=== PATIENT | female | born 1930 | race Caucasian/White ===

== ENCOUNTER 2016-03-01 10:53 | Inpatient (IN) | payer MEDICARE, OTHER ==
[~2016-03-01] VITALS: Ht 162.6 cm; Wt 63.3 kg
[2016-03-01] VITALS (11 sets, daily range): BP systolic 85–104; BP diastolic 51–66
[~2016-03-01 10:53] MED LIST: ATEN50TA2 PO; CALC600T71 PO; FOLI400T PO; FURO20TA2 PO; GLUC1CAP9 PO; MAGN250T2 PO; POTA10CA PO; PRAD75CA3 PO; VITA100066 PO; VITA500T3 PO; VITA50TA43 PO
[2016-03-01 11:24] LABS: BASO # 0.2 K/mm3 (0.0-0.2); BASO % 0.7 % (0.0-1.0); EOS # 0.2 K/mm3 (0.0-0.50); EOS % 0.5 % (0.0-3.0); LARGE UNSTAINED CELL # 0.5 K/mm3 (0.0-0.4); LARGE UNSTAINED CELL % 1.7 % (0.0-4.0); LYMPH # 3.3 K/mm3 (1.5-4.5); LYMPH % 9.5 % (24.0-44.0); MEAN CORPUSCULAR HEMOGLOBIN 28.6 pg (27.0-33.0); MEAN CORPUSCULAR HGB CONC 30.9 g/dl (32.0-36.5); MEAN CORPUSCULAR VOLUME 92.7 fl (80.0-96.0); MONO % 3.4 % (0.0-5.0); NEUTROPHILS # 25.1 K/mm3 (1.8-7.7); NEUTROPHILS % 84.2 % (36.0-66.0); PLATELET COUNT, AUTOMATED 644 k/mm3 (150-450); RED CELL DISTRIBUTION WIDTH 17.3 % (11.5-14.5); WHITE BLOOD COUNT 29.8 K/mm3 (4.0-10.0)
[2016-03-01 11:36] LABS: ABG BASE EXCESS -0.9 (-2.0-2.0); ABG DEVICE NASAL CANN; ABG HCO3 22.7 MEQ/L (22.0-26.0); ABG PARTIAL PRESSURE CO2 34.4 mmHg (35.0-45.0); ABG PARTIAL PRESSURE O2 75.8 mmHg (75.0-100.0); ABG STANDARD HCO3 23.7 MEQ/L (22.0-26.0); ABG TOTAL CO2 23.7 MEQ/L (23.0-31.0); ABG pH (ARTERIAL) 7.437 UNITS (7.350-7.450)
[2016-03-01 11:52] LABS: CALCIUM LEVEL 9.9 MG/DL (8.8-10.2); CREATININE FOR GFR 1.89 MG/DL (0.55-1.02); GLOMERULAR FILTRATION RATE 26.8 (>32); POTASSIUM SERUM 4.9 MEQ/L (3.5-5.1)
--- NOTE | 2016-03-01 12:38 | REP ---
Semi upright AP portable chest, 03/01/2016 Indication: Shortness of breath Comparison: Portable chest 02/09/2015, CT chest 08/13/2013 Findings: The cardiac silhouette is significantly enlarged with right atrial and ventricular enlargement. There is aneurysmal dilatation within the thoracic aorta. New large posterior segment of the right upper lobe opacity with indistinct margins, measuring approximately 10 cm cranial-caudal by 7.4 cm transverse dimension may represent mass versus infiltrate. There is interstitial pulmonary edema Impression: 1. Significant/large cardiomegaly with right atrial enlargement. Right atrial and ventricular pacer leads are unchanged. 2. Interstitial pulmonary edema 3. Large posterior segment right upper lobe mass versus infiltrate. Recommend correlation with CT chest with IV contrast Signed by Gwen Loyd MD 03/01/2016 12:30 P
[2016-03-01] MEDS ORDERED: ONDANSETRON 4MG/2ML VIAL (J2405) IV PRN (12:45)
[2016-03-01] MEDS ORDERED: ACETAMINOPHEN TAB 650MG DOSE (2X325MG) PO PRN (12:45)
[2016-03-01] MEDS ORDERED: cefTRIAXone SOD 1 GM VIAL (J0696) As Ordered ONE (12:46)
[2016-03-01] MEDS ORDERED: AZITHROMYCIN INJ 500MG VIAL (J0456) As Ordered ONE (12:46)
[2016-03-01] MEDS ORDERED: TORS20TA2 PO (13:55)
[2016-03-01] MEDS ORDERED: PRAD75CA3 PO (13:55)
[2016-03-01] MEDS ORDERED: MIDO5TA PO (13:55)
[2016-03-01] MEDS ORDERED: LEVO50TA45 PO (13:55)
[2016-03-01] MEDS ORDERED: FUROSEMIDE 40 MG/4 ML VIAL (J1940) As Ordered ONE (14:20)
[2016-03-01] MEDS ORDERED: FUROSEMIDE 100 MG/10 ML VIAL (J1940) IV ONE (14:30)
[2016-03-01 14:56] LABS: ABG BASE EXCESS -9.2 (-2.0-2.0); ABG HCO3 19.8 MEQ/L (22.0-26.0); ABG PARTIAL PRESSURE CO2 56.3 mmHg (35.0-45.0); ABG PARTIAL PRESSURE O2 85.9 mmHg (75.0-100.0); ABG STANDARD HCO3 17.1 MEQ/L (22.0-26.0); ABG TOTAL CO2 21.5 MEQ/L (23.0-31.0)
[2016-03-01 14:58] LABS: ABG pH (ARTERIAL) 7.164 UNITS (7.350-7.450)
--- NOTE | 2016-03-01 16:10 | REP ---
CHEST, ONE VIEW: HISTORY: Status-post central line placement. COMPARISON: 03/01/2016 The technique utilized in obtaining the radiograph has magnified the cardiac silhouette and accentuated the interstitial markings. A right sided internal jugular central venous catheter is now present. The tip of which is in the region of the superior vena cava. Patchy opacities are again seen throughout the right lung status quo. There are no additional abnormal opacities. Cardiomediastinal silhouette is unchanged. Dual chamber bipolar pace maker status quo. IMPRESSION: Central line placement as described above with other findings. Signed by Marcio Watt DO 03/01/2016 04:40 P
--- NOTE | 2016-03-01 16:30 | RO ---
DATE OF PROCEDURE: 03/01/2016 PREPROCEDURE DIAGNOSIS: Shock. POSTPROCEDURE DIAGNOSIS: Shock and congestive heart failure. PROCEDURE: Triple lumen internal jugular ( IJ) central line. SURGEON: Dr. Camryn Parada SEMI AUTOMATIC SEWING MACHINE OPERATOR: Dr. Steven Samuel ANESTHESIA: 1% local lidocaine. SEDATION: None. VENTILATION: Patient on bilevel positive airway pressure (BiPAP). ESTIMATED BLOOD LOSS: 15 mL. DESCRIPTION OF PROCEDURE: The patient was placed in 15 degree head up position due to dyspnea and congestive heart failure. Initially attempted on left IJ. Patient was cleaned with Chloraprep and covered in a sterile fashion. Ultrasound guidance was used. 1% lidocaine was injected with ultrasound guidance. Subsequently, the needle was inserted, flash of blood was obtained and subsequently attempt was made to thread the wire through the needle but feeling resistance, subsequent attempt was unsuccessful. Subsequently, procedure on the left IJ was aborted. The patient was repositioned, prepped with Chloraprep and covered again for right IJ triple lumen central line. Subsequently, lidocaine 1% was injected with ultrasound guidance. Needle was inserted with ultrasound guidance. Flash of blood of blood was obtained. Subsequently, wire was inserted. Ultrasound was used to confirm wire position. Subsequently, site was dilated and triple lumen central line was inserted over guidewire. Wire was removed. All three ports of central line was flushed and triple lumen central line was secured with stitches and clamps. Dressing was placed. The patient tolerated the procedure with no complications. X-ray was obtained to confirm line position.
--- NOTE | 2016-03-01 17:10 | HPE ---
DATE OF ADMISSION: 03/01/2016 PRIMARY CARE PROVIDER: Dr. Jackson CONTACT CENTER PROFESSIONAL: Dr. Pizarro RV SERVICE TECHNICIAN: Dr. Jarvis CODE STATUS: DO NOT RESUSCITATE, DO NOT INTUBATE. CHIEF COMPLAINT: Pneumonia, non ST elevation myocardial infarction. HISTORY OF PRESENT ILLNESS: Ms. Shrestha is an 85-year-old female with multiple past medical history who presented to the emergency room due to experiencing coughing exacerbation with sputum production, as well as fever, weakness. The patient expressed that her symptoms started around Friday evening when she had one episode of exploding diarrhea; however, the patient denies any abnormal color in her stool. She was able to ambulate however since Friday she became more fatigued. She is using oxygen at night, 2 liters, and her oxygen usage has not been increased. The patient has been having chronic palpitations due to having atrial fibrillation; however, the patient denies noticing any chest pain, increase in palpitations or chest discomfort. The patient expressed that she noticed that her cough has increased for the past two days and yesterday she noticed that her cough became productive with yellowish/green sputum. The patient also had an episode of hemoptysis yesterday which she believe that it is related to coughing too much. She also noticed that she has being temperature about 99.9 to 100.1 every evening since Friday. The patient did not have any sick contacts. The patient lives with her and has a neighbor who is also a caregiver and comes and visits her weekly. The patient expressed that she also developed shortness of breath. PAST MEDICAL HISTORY: 1. Pulmonary hypertension with right sided heart failure. 2. Cor pulmonale. 3. Congested liver and varicosities. 4. Sick sinus syndrome, pacemaker insertion. 5. Atrial fibrillation. 6. Hypercholesterolemia. 7. Hypertension. 8. Gastroesophageal reflux disease (GERD). 9. Osteoarthritis. 10. Varicosities. 11. Severe pulmonary hypertension. PAST SURGICAL HISTORY: Pacemaker insertion. ALLERGIES: AMIODARONE BARBITURATES DARVON CODEINE NIACIN LASIX ORANGE DYE AND SURGICAL SCRUB HOME MEDICATIONS: - Atenolol 50 mg twice a day by mouth - calcium/vitamin D one tablet by mouth daily - vitamin D 1000 units by mouth daily - vitamin B12 500 mcg by mouth daily - Pradaxa 75 mg by mouth twice a day - Levoxyl 50 mcg by mouth daily - magnesium 250 mg by mouth twice a day - midodrine HCL 5 mg by mouth twice a day - prazosin HCL 50 mg by mouth daily - torsemide 20 mg by mouth daily SOCIAL HISTORY: The patient lives with her at home. The patient has a caregiver, the patient's neighbor is also providing care for who lives next door and the patient contacts her anytime that she needs help. The patient is a former smoker; however, the patient quit smoking several years ago. The patient does not drink alcoholic beverages. The patient denies illicit drug use. The patient has not traveled outside the [place]. The patient does not have any pets at home. FAMILY HISTORY: The patient has one son and two daughters who are healthy. The patient had one brother pass away due to lung cancer secondary to smoking. The patient's farther due to having had hypertension. The patient's mother due to cancer secondary to mesothelioma. REVIEW OF SYSTEMS: The patient experienced fever; however, the patient denied any chills or night sweats. The patient denies weight loss or weight gain. HEENT: The patient denies acute vision or hearing changes. The patient has a problem with chewing food; however, the patient expressed that she has lost her appetite since Friday. NECK: The patient has no decreased range of motion of her neck. HEART: The patient expressed that she has been experiencing palpitations for a long time secondary to atrial fibrillation; however, the patient denies any chest pain or any increasing palpitations or having racing or skipping heartbeat more than usual. LUNGS: The patient expressed that she has been experiencing more cough with sputum production, yellow/clear. Also, patient experiencing shortness of breath. ABDOMEN: The patient had one episode of diarrhea; however, the patient denies melena or hematochezia. The patient had one episode of emesis yesterday possibly secondary to coughing and being on Pradaxa. NEUROLOGIC: The patient denies a history of TIA, CVA, or seizure type activity. PHYSICAL EXAMINATION: VITAL SIGNS: Temperature 115/79, pulse 125, respiratory rate 34, temperature 96 , pulse oximetry 91% on 3 liters nasal cannula. Weight 59.87 kg. Height 162.36 cm. Body Mass Index (BMI) 24.87. GENERAL APPEARANCE: The patient was lying in bed in no acute distress. The patient was awake, alert, and oriented to time, place and person. HEENT: Normocephalic, atraumatic. Pupils are equal. Oral mucosa is moist. NECK: Soft, supple. The patient has jugular venous distention (JVD). LUNGS: The patient has inhale and exhale wheezing. The patient also has crackles at the base of the lung. ABDOMEN: Positive bowel sounds in all quadrants. Soft, nontender. EXTREMITIES: Lower extremity edema. +2 pulses in both lower extremities. Also , the patient has varicosities bilaterally in her lower extremities. LABORATORY DATA: White blood cells 29.8, pulse 4.41, hemoglobin 12.6, hematocrit 40.8, MCV 92.7, MCH 28.7, MCHC 30.9, RDW 17.3, platelet count 644. Neutrophil percentage 84.2, lymphocyte percentage 9.2, monocyte percentage 33.4, eosinophil percentage 0.5, basophil percentage 0.7, leukocyte percentage 1.7, bicarbonate 23.7. ABG shows pH 7.437, ABG PCO2 34.4, ABG PO2 75.8, ABG HCL3 22.7, ABG total CO2 23.7, ABG O2 saturation 95.9, ABG excess -0.9. Sodium 134, potassium 4.9, chloride 98, carbon dioxide 26, anion gap 10, BUN 85, creatinine 1.89, GFR 26.8, fasting glucose 101, lactic acid 2.2, calcium 9.9, total CK 34, CK-MB 1.8, CK-MB relative index 5.92, troponin I 1.60, BNP 1550. Blood culture is pending at this time. Chest x-ray shows significant large cardiomegaly with right atrial enlargement, right atrial and ventricular pacer, unchanged interstitial pulmonary edema, large posterior segment right upper lobe mass versus infiltrate. ASSESSMENT AND PLAN: 1. Non ST elevation myocardial infarction. At this time, the patient denies having chest pain. The patient's cardiac marker shows increase of troponin I. We will repeat the cardiac markers again for two more sets and admit her to the progressive care unit (PCU). The patient also has acute on chronic kidney disease, which could also contribute to elevation of the troponin I. At this time, the patient is on Pradaxa and beta don (atenolol 50 mg by mouth twice a day). We have ordered echocardiogram and consulted cardiology, Dr. Araujo. Appreciate Dr. Araujo recommendations. 2. Pneumonia. Chest x-ray finding shows a possibility of pneumonia. Therefore , we have started the patient on ceftriaxone and azithromycin. Also, we have ordered a sputum culture and Gram stain, as well as influenza A and B, strep pneumonia and Legionella. Result is pending at this time. Also, we will continue the patient on oxygen nasal cannula with an order for Acapella and incentive spirometry. 3. Sepsis. This is possibly secondary to pneumonia. However, we have ordered blood cultures and due to the possibility of urinary tract infection (UTI), I have ordered a UA and urine culture, result is pending at this time. At this time, we will continue the patient on azithromycin and ceftriaxone. 4. Right sided heart failure. The patient has pulmonary hypertension with right sided heart failure, cor pulmonale. The patient's BNP has increased. Therefore , we gave one dose of Lasix 80 mg one time. We will continue the patient on the home dose of torsemide 20 mg by mouth daily however she might required aggressive diuresis. 5. Hypothyroidism. We will continue the patient on Synthroid 0.05 mg by mouth daily. 6. Sick sinus syndrome. This is a chronic issue. The patient is status post pacemaker. We have consulted Dr. Araujo. 7. Atrial fibrillation. At this time, the patient is on Pradaxa. Also, the patient is on atenolol however her heart rate is not controlled. This is possibly secondary to infection versus NE versus hypervolemia. We will continue to monitor the patient. The patient will be monitored on the progressive care unit (PCU). 8. Essential hypertension: Patient reported recent hypotension for which she was placed on midodrine by her PCP. 9. Chronic diastolic congestive heart failure: NYHA functional class III exertional dyspnea patient appeared to be decompensated on examination her BNP has increased. Patient received 1 dose of Lasix at the ER. At this time we'll continue patient on the home dosage of torsemide however patient might require to have aggressive uses. 10. Hypercholesterolemia. This is a chronic issue. 11. Gastroesophageal reflux disease (GERD). The patient is stable at this time. 12. Varicosities. This is a chronic issue. At this time, the patient is stable. 13. Osteoarthritis. The patient is asymptomatic. We will continue to monitor the patient for any abnormal symptoms. 14. Deep vein thrombosis (DVT) prophylaxis. The patient is on Pradaxa. 15. Constipation. The patient is on bowel regimen. 16. Lower extremity neuropathy. We will continue the patient on vitamin B12. At this time, the patient is stable. 17. Vitamin D deficiency. We will continue the patient on vitamin D 1000 units by mouth daily. My preceptor for this patient encounter was Dr. Buckner. The preceptor was physically present in the building during the encounter and was fully available. As needed, all aspects of the patient interview, examination, medical decision making process, and medical care plan development were reviewed and approved by the preceptor. The preceptor is aware and concurs with the plan as stated in the body of this note and will attest to such by his/her cosignature. Attending Note: I have independently examined this patient and all aspects of the exam and treatment decisions have been discussed with the resident. A member of the hospitalist staff will continue to follow this patient through discharge. ERIC
--- NOTE | 2016-03-01 17:34 | EDDOCDS ---
Physician Documentation [facility] Name: Mundo Shrestha Age: 85 yrs Sex: Female : 1930 Arrival Date: 03/01/2016 Time: 10:53 Bed 4 Private MDThomas Jackson Disposition: 03/01/16 12:54 Hospitalization ordered by Melvin Buckner for Inpatient Admission. Preliminary diagnosis are Pneumonia, unspecified organism, Acute pulmonary edema, Non-ST elevation (NSTEMI) myocardial infarction. - Bed requested for M ICU. - Status is Inpatient Admission. rs3 - Condition is Stable. - Problem is new. - Symptoms are unchanged. Historical: - Allergies: Amiodarone; BARBITURATES; Darvon; Codeine Sulfate; Latex; Niacin; orange dye; surgical scrub; - Home Meds: 1. Vitamin B-6 50 mg Oral cap 200 mg daily (Last dose: 02/29/2016) 2. Vitamin B-12 500 mcg Oral lozg daily (Last dose: 02/29/2016) 3. magnesium oxide 250 mg Oral tab daily (Last dose: 02/29/2016) 4. vit d 1000 daily 5. torsemide 20 mg oral tab 1 tab once daily (Last dose: 02/29/2016 08:00) 6. midodrine 5 mg oral tab bid (Last dose: 02/29/2016 20:00) 7. levothyroxine 50 mcg Oral tab 1 tab once daily (Last dose: 02/29/2016) 8. Pradaxa 75 mg oral cap bid (Last dose: 02/29/2016) 9. atenolol 50 mg Oral tab 2 times per day (Last dose: 02/29/2016) 10. potassium chloride 10 mEq Oral cpER daily when taking the lasix (Last dose: 02/29/2016) 11. calcium carbonate with vit D 630/400 mg Oral daily (Last dose: 02/29/2016) 12. O2 3L nightly (Last dose: 03/01/2016) - PMHx: Atrial Fib; GERD; Hypercholesterolemia; Hypertension; Osteoarthritis; Pulmonary Hypertension; sick sinus syndrome; Varicose Veins; pacer; - PSHx: pacer placement; - Social history: Smoking status: Patient states former smoker of tobacco. No barriers to communication noted, Speaks appropriately for age. - Family history: Not pertinent. - : The pt / caregiver states he / she is on anticoagulants: Pradaxa (Dabigatran) Home medication list is obtained from a discharge med list. - Exposure Risk Screening:: None identified. Vital Signs: 03/01 11:04 BP 115 / 79 RA Sitting (auto/reg); Pulse 125; Resp 34; Temp 96.0(O); Pulse Ox 91% on 3 jrd lpm NC; Weight 59.87 kg / 131.99 lbs (R); Height 5 ft. 4 in. (162.56 cm) (R); Pain 0/10; 11:05 Weight 61.69 kg / 136 lbs; Height 62 in. (157.48 cm); ttb 11:34 BP 117 / 77 (auto/); rs3 11:35 Pulse 120 MON; Pulse Ox 94% ; rs3 11:43 Pulse 122 MON; Pulse Ox 94% ; rs3 11:45 BP 122 / 76 (auto/); rs3 11:59 BP 111 / 66 (auto/); rs3 12:00 Pulse 118 MON; Pulse Ox 96% ; rs3 12:14 BP 101 / 59 (auto/); rs3 12:15 Pulse 124 MON; Pulse Ox 96% ; rs3 12:29 BP 104 / 55 (auto/); rs3 12:32 Pulse 122 MON; Pulse Ox 96% ; rs3 12:44 BP 98 / 65 (auto/); rs3 12:45 Pulse 128 MON; Pulse Ox 94% ; rs3 12:59 BP 106 / 67 (auto/); rs3 13:01 Pulse 124 MON; Pulse Ox 94% ; rs3 13:14 BP 132 / 80 (auto/); rs3 13:15 Pulse 124 MON; Pulse Ox 94% ; rs3 13:29 BP 143 / 78 (auto/); rs3 13:30 Pulse 128 MON; Pulse Ox 94% ; rs3 13:44 BP 127 / 65 (auto/); rs3 13:45 Pulse 120 MON; Pulse Ox 92% ; rs3 14:10 BP 111 / 63 (auto/); rs3 14:11 Pulse 124 MON; Pulse Ox 85% ; rs3 14:14 BP 95 / 72 (auto/); rs3 14:15 Pulse 124 MON; Pulse Ox 84% ; rs3 14:29 BP 107 / 79 (auto/); rs3 14:30 Pulse 120 MON; Pulse Ox 84% ; rs3 14:44 BP 103 / 73 (auto/); rs3 14:44 Pulse 128 MON; Pulse Ox 88% ; rs3 14:59 BP 103 / 77 (auto/); rs3 14:59 Pulse 132 MON; Pulse Ox 90% ; rs3 15:14 BP 99 / 66 (auto/); rs3 15:15 Pulse 136 MON; Pulse Ox 94% ; rs3 15:29 BP 91 / 59 (auto/); rs3 15:31 Pulse 136 MON; Pulse Ox 93% ; rs3 15:45 BP 102 / 59 (auto/); rs3 15:49 Pulse 132 MON; Pulse Ox 95% ; rs3 15:59 BP 98 / 57 (auto/); rs3 16:00 Pulse 130 MON; Pulse Ox 95% ; rs3 16:14 BP 88 / 54 (auto/); rs3 16:15 Pulse 116 MON; Pulse Ox 96% ; rs3 16:29 BP 90 / 55 (auto/); rs3 16:30 Pulse 120 MON; Pulse Ox 97% ; rs3 16:44 BP 95 / 58 (auto/); rs3 16:45 Pulse 128 MON; Pulse Ox 98% ; rs3 16:59 BP 91 / 63 (auto/); rs3 17:00 Pulse 126 MON; Pulse Ox 95% ; rs3 17:11 Pulse 128 MON; Resp 28; Pulse Ox 94% ; rs3 17:23 Temp 98.5(TE); rn1 17:26 BP 91 / 63; Pulse 124 MON; Resp 28; Temp 98.5(TE); Pulse Ox 93% on BiPAP; Pain 0/10; rs3 11:05 Body Mass Index 24.87 (61.69 kg, 157.48 cm) ttb MDM: 11:05 Engineer Steam/Pulse Ox/q 30 min VS ordered. br1 11:05 IV Saline Lock ordered. br1 11:05 Rhythm Strip to chart ordered. br1 11:05 Undress patient appropriately for examination ordered. br1 11:06 Basic Metabolic Profile Ordered. EDMS 11:06 CBC with Diff Ordered. EDMS 11:06 Cardiac Injury Profile Ordered. EDMS 11:06 Troponin Ordered. EDMS 11:06 ECG WITH READING ER PHYS+CARDIAG ordered. EDMS 11:07 BNP Ordered. EDMS 11:08 Chest, 2 View (pa\E\lat) Ordered. EDMS 11:19 -Blood Culture (Adults Only), peripheral from different site, or from device/port/PICC br1 etc. if present ordered. 11:19 Call Respiratory ordered. br1 11:20 Oxygen at 4L/Min NC or Home dosage ordered. br1 11:20 Lactic Acid (Back tube on ice) Ordered. EDMS 11:20 -Arterial Blood Gas Ordered. EDMS 11:20 -Blood Culture Ordered. EDMS 11:21 Call Respiratory complete. lbd 11:21 -Blood Culture (Adults Only), peripheral from different site, or from device/port/PICC lbd etc. if present complete. 11:23 BLOOD CULTURES Ordered. EDMS 12:21 cefTRIAXone 1 grams IVPB once over 30 mins; dilute in 50mL of NS or D5W ordered. br1 12:21 azithromycin 500 mg IVPB once over 1 hrs; dilute in 250mL of D5W or NS ordered. br1 12:33 Financial registration complete. pm4 12:44 LACTIC ACID LEVEL, LACTATE Ordered. EDMS 12:46 PHYSICAL THERAPY EVAL & TREAT ordered. EDMS 12:46 Basic Metabolic Profile Reviewed. br1 12:46 CBC with Diff Reviewed. br1 12:46 Cardiac Injury Profile Reviewed. br1 12:46 Troponin Reviewed. br1 12:46 BNP Reviewed. br1 12:46 Lactic Acid (Back tube on ice) Reviewed. br1 12:46 -Arterial Blood Gas Reviewed. br1 12:46 Admission / Observation Status ordered. EDMS 12:46 2 GRAM SODIUM DIET ordered. EDMS 12:53 [facility] [place] Agreement was scanned into [employer] and attached to record. pm4 13:06 CARDIAC MARKER PANEL Ordered. EDMS 13:06 SPUTUM CULTURE AND GRAM STAIN Ordered. EDMS 13:11 NS 0.9% 500 ml IV at bolus once ordered. br1 13:48 LEGIONELLA ANTIGEN URINE Ordered. EDMS 13:48 URINE STREP PNEUMONIAE ANTIGEN Ordered. EDMS 13:48 INFLUENZA A&B RAPID ANTIGEN Ordered. EDMS 13:55 URINALYSIS Ordered. EDMS 13:55 URINE CULTURE Ordered. EDMS 14:17 ED course: Seen by Dr. Buckner in ED, will admit patient, requested 500 cc normal br1 saline bolus x 1. 14:19 Furosemide 80 mg IVP once ordered. rs3 14:19 Louis ordered. rs3 14:20 ECHOCARD,DOPPLER/COLOR FLOW ordered. EDMS 14:33 ARTERIAL BLOOD GAS Ordered. EDMS 14:34 CPAP INPATIENT ordered. EDMS 15:21 Admission / Observation Status ordered. EDMS 15:33 Chest, 1 view Ordered. EDMS 15:37 Written Provider Order was scanned into [email or web address] and attached to record. lbd 15:56 ARTERIAL BLOOD GAS Ordered. EDMS 16:42 LACTIC ACID LEVEL, LACTATE Ordered. EDMS Administered Medications: 13:00 Drug: cefTRIAXone 1 grams Route: IVPB; Infused Over: 30 mins; Site: left antecubital; rs3 13:38 Follow up: IV Status: Completed infusion rs3 13:22 Drug: NS 0.9% 500 ml [sodium chloride 0.9 % injection solution] Route: IV; Rate: bolus; pml Site: left antecubital; 13:38 Drug: azithromycin 500 mg [azithromycin 500 mg intravenous solution] Route: IVPB; rs3 Infused Over: 1 hrs; Site: left antecubital; 15:58 Follow up: IV Status: Completed infusion rs3 14:20 Drug: Furosemide 80 mg [furosemide 10 mg/mL injection solution (8 mL)] Route: IVP; rs3 Site: left antecubital; Signatures: Dispatcher [employer] EDMS Kelle Bell, Flatbed Press Operator Unit lbd Charly Cerda RN Erich Elias MD MD br1 Dorothy Durham RN RN rs3 Agnieszka Mora RN RN ttb Sarkis Izaguirre RN Saul Saldivar sa, Reg Reg pm4 Liudmila Nunez RN pml The chart was reviewed and I authenticate all verbal orders and agree with the evaluation and treatment provided.Attachments: 12:53 [facility] Payment Agreement pm4 15:37 Written Provider Order lbd MTDD
--- NOTE | 2016-03-01 17:34 | EDDOCDS ---
Nurse's Notes [facility] Name: Mundo Shrestha Age: 85 yrs Sex: Female : 1930 Arrival Date: 03/01/2016 Time: 10:53 Bed 4 Private MD: Manuel Diagnosis: Pneumonia, unspecified organism;Acute pulmonary edema;Non-ST elevation (NSTEMI) myocardial infarction Presentation: 03/01 10:59 Presenting complaint: EMS states: increasing SOB since Friday. Today worsening -- pt ttb refused NRB and nitro in ambulance. 6L O2 applied in route. 12 lead shows Afib per EMS. No pain. Adult Sepsis Screening: The patient does not have new or worsening altered mentation. Patient has a respiratory rate of greater than or equal to 22 (1 point). Suicide/Homicide risk assessment- the patient denies having any suicidal and/or homicidal ideations and does not present with any other emotional, behavioral or mental health complaints. Status: Patient is not a food service clerk or dependent. Transition of care: patient was not received from another setting of care. 10:59 Method Of Arrival: Ambulance ttb 10:59 Acuity: CHERRIE Level 2 ttb 11:19 Adult Sepsis Screening: Patient has a qSOFA score of 1- Negative Sepsis Screen. ttb Triage Assessment: 11:19 Respiratory: Onset: The symptoms/episode began/occurred friday, Airway is patent ttb Respiratory effort is even, shallow, Respiratory pattern is regular, symmetrical, tachypnea Breath sounds with rhonchi inspiratory expiratory bilaterally. Reports shortness of breath at rest on exertion the patient has severe shortness of breath Denies pain with respiration, pain with cough. Derm: Skin is normal, circumoral discoloration and dusky fingers, cool to touch, LE's with broken blood vessels/veins noted. 1+ edema noted. Historical: - Allergies: Amiodarone; BARBITURATES; Darvon; Codeine Sulfate; Latex; Niacin; orange dye; surgical scrub; - Home Meds: 1. Vitamin B-6 50 mg Oral cap 200 mg daily (Last dose: 02/29/2016) 2. Vitamin B-12 500 mcg Oral lozg daily (Last dose: 02/29/2016) 3. magnesium oxide 250 mg Oral tab daily (Last dose: 02/29/2016) 4. vit d 1000 daily 5. torsemide 20 mg oral tab 1 tab once daily (Last dose: 02/29/2016 08:00) 6. midodrine 5 mg oral tab bid (Last dose: 02/29/2016 20:00) 7. levothyroxine 50 mcg Oral tab 1 tab once daily (Last dose: 02/29/2016) 8. Pradaxa 75 mg oral cap bid (Last dose: 02/29/2016) 9. atenolol 50 mg Oral tab 2 times per day (Last dose: 02/29/2016) 10. potassium chloride 10 mEq Oral cpER daily when taking the lasix (Last dose: 02/29/2016) 11. calcium carbonate with vit D 630/400 mg Oral daily (Last dose: 02/29/2016) 12. O2 3L nightly (Last dose: 03/01/2016) - PMHx: Atrial Fib; GERD; Hypercholesterolemia; Hypertension; Osteoarthritis; Pulmonary Hypertension; sick sinus syndrome; Varicose Veins; pacer; - PSHx: pacer placement; - Social history: Smoking status: Patient states former smoker of tobacco. No barriers to communication noted, Speaks appropriately for age. - Family history: Not pertinent. - : The pt / caregiver states he / she is on anticoagulants: Pradaxa (Dabigatran) Home medication list is obtained from a discharge med list. - Exposure Risk Screening:: None identified. Screenin:15 Screening information is obtained from the patient. Fall risk: At risk due to age, rs3 apparent cognitive impairment, gait disturbance, immobility. Assistance ADL's: Requires assistance with housework, assistance is provided by Home Health Aides. Abuse/DV Screen: The patient / caregiver reports he/she is: not in a situation that causes fear, pain or injury. Nutritional screening: No deficits noted. Advance Directives: Currently, there is a health care proxy, Chapin Shrestha (). There is an active DNR order but there is no copy available at this time. home support is adequate. Assessment: 11:16 Adult Sepsis Screening: The patient does not have new or worsening altered mentation. ttb Patient has a respiratory rate of greater than or equal to 22 (1 point). Systolic blood pressure is greater than 100. Patient has a qSOFA score of 1- Negative Sepsis Screen. General: Appears well nourished, well groomed, Behavior is appropriate for age, cooperative, pleasant. Pain: Denies pain. Neurological: Level of Consciousness is awake, alert, Speech is normal, Facial symmetry appears normal. Cardiovascular: Rhythm is atrial fibrillation Chest pain is denied. Respiratory: Airway is patent Respiratory effort is even, shallow, Respiratory pattern is regular, symmetrical, tachypnea Breath sounds are coarse Breath sounds with rhonchi crackles bilat Reports shortness of breath at rest on exertion since the patient has severe shortness of breath Denies pain with respiration. GI: Abdomen is noted to have ascites, Bowel sounds present X 4 quads. Denies nausea, vomiting, pain. Derm: Skin is normal. Injury Description: No known injury. 11:20 General: report given to next RNMarianne to continue care. Pt visiting with MD at this ttb time. . 12:17 General: Appears distressed. Pain: Denies pain. Neurological: Level of Consciousness is rs3 awake, alert. Respiratory: Airway is patent Respiratory effort is even, labored, Respiratory pattern is regular, symmetrical, Breath sounds are coarse bilaterally. Breath sounds with rhonchi bilaterally. Reports shortness of breath at rest cough that is productive, bloody sputum. Derm: Skin is dusky, finger tips. 13:53 General: Appears in no apparent distress, denies of acute distress at rest. SOB with rs3 activity, & speaking. denies of chest pain. ordered antibiotic Azithromycin infusing. tolerating well. family at bedside. admitting provider with patient. . 14:30 General: Appears distressed, patient tachypneic, distressed. lung sounds coarse rs3 crackles throughout lung emreson. oxygen sat 84% on 5 L/NC. admitting provider made aware. ordered med Lasix 80 mg IVP given. indwelling Louis 16fr inserted. drains dark yellow urine. respiratory therapist called in. adjusting mode of oxygen delivery . 15:30 General: Appears in no apparent distress, Had triple lumen insertion procedure done by rs3 Dr. Parada. patient tolerated well. Stat ABG drawn. patient on BIpap. tolerating well. titrated her to oxygen 98% . 16:40 General: Appears in no apparent distress, breathes easy. on BiPAP. maintaining oxygen rs3 level high 90s. Respiration 28/mt. lung sounds clear anteriorly. fine crackles at bibasilar. resting comfortable. . Vital Signs: 11:04 BP 115 / 79 RA Sitting (auto/reg); Pulse 125; Resp 34; Temp 96.0(O); Pulse Ox 91% on 3 jrd lpm NC; Weight 59.87 kg (R); Height 5 ft. 4 in. (162.56 cm) (R); Pain 0/10; 11:05 Weight 61.69 kg; Height 62 in. (157.48 cm); ttb 11:34 BP 117 / 77 (auto/); rs3 11:35 Pulse 120 MON; Pulse Ox 94% ; rs3 11:43 Pulse 122 MON; Pulse Ox 94% ; rs3 11:45 BP 122 / 76 (auto/); rs3 11:59 BP 111 / 66 (auto/); rs3 12:00 Pulse 118 MON; Pulse Ox 96% ; rs3 12:14 BP 101 / 59 (auto/); rs3 12:15 Pulse 124 MON; Pulse Ox 96% ; rs3 12:29 BP 104 / 55 (auto/); rs3 12:32 Pulse 122 MON; Pulse Ox 96% ; rs3 12:44 BP 98 / 65 (auto/); rs3 12:45 Pulse 128 MON; Pulse Ox 94% ; rs3 12:59 BP 106 / 67 (auto/); rs3 13:01 Pulse 124 MON; Pulse Ox 94% ; rs3 13:14 BP 132 / 80 (auto/); rs3 13:15 Pulse 124 MON; Pulse Ox 94% ; rs3 13:29 BP 143 / 78 (auto/); rs3 13:30 Pulse 128 MON; Pulse Ox 94% ; rs3 13:44 BP 127 / 65 (auto/); rs3 13:45 Pulse 120 MON; Pulse Ox 92% ; rs3 14:10 BP 111 / 63 (auto/); rs3 14:11 Pulse 124 MON; Pulse Ox 85% ; rs3 14:14 BP 95 / 72 (auto/); rs3 14:15 Pulse 124 MON; Pulse Ox 84% ; rs3 14:29 BP 107 / 79 (auto/); rs3 14:30 Pulse 120 MON; Pulse Ox 84% ; rs3 14:44 BP 103 / 73 (auto/); rs3 14:44 Pulse 128 MON; Pulse Ox 88% ; rs3 14:59 BP 103 / 77 (auto/); rs3 14:59 Pulse 132 MON; Pulse Ox 90% ; rs3 15:14 BP 99 / 66 (auto/); rs3 15:15 Pulse 136 MON; Pulse Ox 94% ; rs3 15:29 BP 91 / 59 (auto/); rs3 15:31 Pulse 136 MON; Pulse Ox 93% ; rs3 15:45 BP 102 / 59 (auto/); rs3 15:49 Pulse 132 MON; Pulse Ox 95% ; rs3 15:59 BP 98 / 57 (auto/); rs3 16:00 Pulse 130 MON; Pulse Ox 95% ; rs3 16:14 BP 88 / 54 (auto/); rs3 16:15 Pulse 116 MON; Pulse Ox 96% ; rs3 16:29 BP 90 / 55 (auto/); rs3 16:30 Pulse 120 MON; Pulse Ox 97% ; rs3 16:44 BP 95 / 58 (auto/); rs3 16:45 Pulse 128 MON; Pulse Ox 98% ; rs3 16:59 BP 91 / 63 (auto/); rs3 17:00 Pulse 126 MON; Pulse Ox 95% ; rs3 17:11 Pulse 128 MON; Resp 28; Pulse Ox 94% ; rs3 17:23 Temp 98.5(TE); rn1 17:26 BP 91 / 63; Pulse 124 MON; Resp 28; Temp 98.5(TE); Pulse Ox 93% on BiPAP; Pain 0/10; rs3 11:05 Body Mass Index 24.87 (61.69 kg, 157.48 cm) ttb Vitals: 11:05 Log In Time N/A - ambulance arrival. ttb ED Course: 10:55 Patient visited by Kelle Bell, Associate Professor Of English. lbd 10:55 [place] is Private Physician. lbd 10:55 Patient moved to Waiting lbd 10:55 Patient moved to 4 lbd 11:03 Triage Initiated ttb 11:05 Patient visited by Joel Gutierrez PCA. jrd 11:10 Erich Rose MD is Attending Physician. br1 11:14 Patient visited by Agnieszka Mora RN. ttb 11:16 BNP Sent. ttb 11:16 Basic Metabolic Profile Sent. ttb 11:16 CBC with Diff Sent. ttb 11:16 Cardiac Injury Profile Sent. ttb 11:16 Troponin Sent. ttb 11:18 EKG done. (by ED staff). Reviewed by Erich Rose MD. rn1 11:19 Patient visited by Erich Rose MD. br1 11:21 Maintain field IV. Dressing intact. Good blood return noted. Site clean & dry. Gauge & ttb site: 20G LAC. Labs drawn. (by ED staff). Labs/Blood culture drawn. 11:33 -Arterial Blood Gas Sent. rs5 11:38 Dorothy Durham RN is Primary Nurse. rs3 11:54 Patient visited by Dorothy Durham RN. rs3 12:30 Patient visited by Dorothy Durham RN. rs3 12:30 BLOOD CULTURES Sent. rs3 12:53 [facility] Payment Agreement was scanned into [employer] and attached to record. pm4 12:54 Melvin Buckner DO is Hospitalizing Provider. br1 13:18 Chest, 2 View (pa\E\lat) Returned. EDMS 14:45 Assist provider with central line placement of triple lumen in right internal jugular. rs3 Set up central line tray. Line placed by Camryn Parada Placement verified by CXR, blood return, Dressed with 4X4s, Tape, Tegaderm, Patient tolerated well. Louis cath inserted 16 Fr. Balloon inflated. To gravity drainage. Patient tolerated well. 15:37 Written Provider Order was scanned into [employer] and attached to record. lbd 16:16 Chest, 1 view Returned. EDMS 17:08 Patient visited by Dorothy Durham RN. rs3 17:27 The patient / caregiver is instructed regarding the plan of care and ED course. rs3 Administered Medications: 13:00 Drug: cefTRIAXone 1 grams Route: IVPB; Infused Over: 30 mins; Site: left antecubital; rs3 13:38 Follow up: IV Status: Completed infusion rs3 13:22 Drug: NS 0.9% 500 ml [sodium chloride 0.9 % injection solution] Route: IV; Rate: bolus; pml Site: left antecubital; 13:38 Drug: azithromycin 500 mg [azithromycin 500 mg intravenous solution] Route: IVPB; rs3 Infused Over: 1 hrs; Site: left antecubital; 15:58 Follow up: IV Status: Completed infusion rs3 14:20 Drug: Furosemide 80 mg [furosemide 10 mg/mL injection solution (8 mL)] Route: IVP; rs3 Site: left antecubital; Output: 17:32 Urine: 200.00ml (Louis); Total: 200.00ml. rs3 RT: 11:34 ABG's drawn from right brachial artery pressure held for 5 minutes no bleeding noted rs5 pressure bandage applied specimen sent pt. tolerated well. Order Results: Lab Order: Basic Metabolic Profile; SPEC'M 03/01/16 11:10 Test: GLUCOSE, FASTING; Value: 101; Range: 83-110; Units: MG/DL; Status: F Test: BLOOD UREA NITROGEN; Value: 85; Range: 7-18; Abnormal: Above high normal; Units: MG/DL; Status: F Test: CREATININE FOR GFR; Value: 1.89; Range: 0.55-1.02; Abnormal: Above high normal; Units: MG/DL; Status: F Test: GLOMERULAR FILTRATION RATE; Value: 26.8; Range: >32; Abnormal: Below low normal; Status: F Test: SODIUM LEVEL; Value: 134; Range: 136-145; Abnormal: Below low normal; Units: MEQ/L; Status: F Test: POTASSIUM SERUM; Value: 4.9; Range: 3.5-5.1; Units: MEQ/L; Status: F Test: CHLORIDE LEVEL; Value: 98; Range: 98-107; Units: MEQ/L; Status: F Test: CARBON DIOXIDE LEVEL; Value: 26; Range: 21-32; Units: MEQ/L; Status: F Test: ANION GAP; Value: 10; Range: 8-16; Units: MEQ/L; Status: F Test: CALCIUM LEVEL; Value: 9.9; Range: 8.8-10.2; Units: MG/DL; Status: F Test Note: ; Units are mL/min/1.73 m2 Chronic Kidney Disease Staging per NKF: Stage I & II GFR >=60 Normal to Mildly Decreased Stage III GFR 30-59 Moderately Decreased Stage IV GFR 15-29 Severely Decreased Stage V GFR <15 Very Little GFR Left ESRD GFR <15 on ERP TECHNICAL LEAD Lab Order: CBC with Diff; SPEC'M 03/01/16 11:10 Test: WHITE BLOOD COUNT; Value: 29.8; Range: 4.0-10.0; Abnormal: Above high normal; Units: K/mm3; Status: F Test: RED BLOOD COUNT; Value: 4.41; Range: 4.00-5.40; Units: M/mm3; Status: F Test: HEMOGLOBIN; Value: 12.6; Range: 12.0-16.0; Units: g/dl; Status: F Test: HEMATOCRIT; Value: 40.8; Range: 36.0-47.0; Units: %; Status: F Test: MEAN CORPUSCULAR VOLUME; Value: 92.7; Range: 80.0-96.0; Units: fl; Status: F Test: MEAN CORPUSCULAR HEMOGLOBIN; Value: 28.6; Range: 27.0-33.0; Units: pg; Status: F Test: MEAN CORPUSCULAR HGB CONC; Value: 30.9; Range: 32.0-36.5; Abnormal: Below low normal; Units: g/dl; Status: F Test: RED CELL DISTRIBUTION WIDTH; Value: 17.3; Range: 11.5-14.5; Abnormal: Above high normal; Units: %; Status: F Test: PLATELET COUNT, AUTOMATED; Value: 644; Range: 150-450; Abnormal: Above high normal; Units: k/mm3; Status: F Test: NEUTROPHILS %; Value: 84.2; Range: 36.0-66.0; Abnormal: Above high normal; Units: %; Status: F Test: LYMPH %; Value: 9.5; Range: 24.0-44.0; Abnormal: Below low normal; Units: %; Status: F Test: MONO %; Value: 3.4; Range: 0.0-5.0; Units: %; Status: F Test: EOS %; Value: 0.5; Range: 0.0-3.0; Units: %; Status: F Test: BASO %; Value: 0.7; Range: 0.0-1.0; Units: %; Status: F Test: LARGE UNSTAINED CELL %; Value: 1.7; Range: 0.0-4.0; Units: %; Status: F Test: NEUTROPHILS #; Value: 25.1; Range: 1.8-7.7; Abnormal: Above high normal; Units: K/mm3; Status: F Test: LYMPH #; Value: 3.3; Range: 1.5-4.5; Units: K/mm3; Status: F Test: MONO #; Value: 1.0; Range: 0.0-0.8; Abnormal: Above high normal; Units: K/mm3; Status: F Test: EOS #; Value: 0.2; Range: 0.0-0.50; Units: K/mm3; Status: F Test: BASO #; Value: 0.2; Range: 0.0-0.2; Units: K/mm3; Status: F Test: LARGE UNSTAINED CELL #; Value: 0.5; Range: 0.0-0.4; Abnormal: Above high normal; Units: K/mm3; Status: F Lab Order: Cardiac Injury Profile; [facility] 03/01/16 11:10 Test: CPK CREATINE PHOSPHOKINASE; Value: 34; Range: 26-192; Units: U/L; Status: F Test: CK-MB VALUE MASS; Value: 1.8; Range: 0.0-3.6; Units: NG/ML; Status: F Test: MB/CK RELATIVE INDEX; Value: 5.29; Range: < OR =4; Abnormal: Above high normal; Status: F Test Note: ; DIAGNOSIS CRITERIA MMB ng/ml Relative Index (RI) NON-AMI < or = 5 N/A BACK ZONE > 5 < or = 4 AMI > 5 > 4 Lab Order: Troponin; [facility] 03/01/16 11:10 Test: TROPONIN I; Value: 1.60; Range: < 0.10; Abnormal: Above upper panic limits; Units: NG/ML; Status: F Test Note: ; Troponin I Reference Interval for Frontback LOCI: 99th Percentile= 0.00-0.045 ng/ml Risk Stratification: <= 0.10 ng/ml Decreased Risk for Adverse Clinical Events. 0.10-1.50 ng/ml Increased Risk for Adverse Clinical Events. Evaluation of additional criterion and/or repeat testing in 2-6 hours is suggested to rule out myocardial damage. >= 1.50 ng/ml Indicative of Myocardial Injury. Lab Order: BNP; [facility] 03/01/16 11:10 Test: BRAIN NATRIURETIC PEPTIDE; Value: 1550; Range: <100; Abnormal: Above high normal; Units: PG/ML; Status: F Lab Order: Lactic Acid (Back tube on ice); SPEC'M 03/01/16 11:07 Test: LACTIC ACID LEVEL, LACTATE; Value: 2.2; Range: 0.4-2.0; Abnormal: Above upper panic limits; Units: MMOL/L; Status: F Lab Order: -Arterial Blood Gas; SPEC'M 03/01/16 11:25 Test: ABG pH (ARTERIAL); Value: 7.437; Range: 7.350-7.450; Units: UNITS; Status: F Test: ABG PARTIAL PRESSURE CO2; Value: 34.4; Range: 35.0-45.0; Abnormal: Below low normal; Units: mmHg; Status: F Test: ABG PARTIAL PRESSURE O2; Value: 75.8; Range: 75.0-100.0; Units: mmHg; Status: F Test: ABG TOTAL CO2; Value: 23.7; Range: 23.0-31.0; Units: MEQ/L; Status: F Test: ABG HCO3; Value: 22.7; Range: 22.0-26.0; Units: MEQ/L; Status: F Test: ABG BASE EXCESS; Value: -0.9; Range: -2.0-2.0; Status: F Test: ABG STANDARD HCO3; Value: 23.7; Range: 22.0-26.0; Units: MEQ/L; Status: F Test: ABG O2 SATURATION; Value: 95.9; Range: 95.0-99.0; Units: %; Status: F Test: ABG DEVICE; Value: NASAL MAISHA; Status: F Lab Order: INFLUENZA A&B RAPID ANTIGEN; SPEC'M 03/01/16 16:01 Test: INFLUENZA A RAPID SCR by ICA; Value: INFLUENZA A RESULTS NEGATIVE; Status: F Test: INFLUENZA A RAPID SCR by ICA; Value: Comments:; Status: F Test: INFLUENZA B RAPID SCR by ICA; Value: INFLUENZA B RESULTS NEGATIVE; Status: F Test Note: ; The Influenza test is a direct rapid immunoassay for the qualitative detection of Influenza viral antigen. Cell culture (Viral Culture) testing should be considered to confirm NEGATIVE results and to assist in detecting other viruses that can provide similar clinical symptoms. Please contact the lab within 24 hours ([phone]) if confirmatory testing is desired. Lab Order: ARTERIAL BLOOD GAS; SPEC'M 03/01/16 14:48 Test: ABG pH (ARTERIAL); Value: 7.164; Range: 7.350-7.450; Abnormal: Critical Low; Units: UNITS; Status: F Test: ABG PARTIAL PRESSURE CO2; Value: 56.3; Range: 35.0-45.0; Abnormal: Above high normal; Units: mmHg; Status: F Test: ABG PARTIAL PRESSURE O2; Value: 85.9; Range: 75.0-100.0; Units: mmHg; Status: F Test: ABG TOTAL CO2; Value: 21.5; Range: 23.0-31.0; Abnormal: Below low normal; Units: MEQ/L; Status: F Test: ABG HCO3; Value: 19.8; Range: 22.0-26.0; Abnormal: Below low normal; Units: MEQ/L; Status: F Test: ABG BASE EXCESS; Value: -9.2; Range: -2.0-2.0; Abnormal: Below low normal; Status: F Test: ABG STANDARD HCO3; Value: 17.1; Range: 22.0-26.0; Abnormal: Below low normal; Units: MEQ/L; Status: F Test: ABG O2 SATURATION; Value: 94.4; Range: 95.0-99.0; Abnormal: Below low normal; Units: %; Status: F Radiology Order: Chest, 2 View (pa\E\lat) Test: Chest, 2 View (pa\E\lat) REASON FOR EXAMINATION: Shortness of Breath; Semi upright AP portable chest, 03/01/2016; ; Indication: Shortness of breath; ; Comparison: Portable chest 02/09/2015, CT chest 08/13/2013; ; Findings: The cardiac silhouette is significantly enlarged with right atrial and; ventricular enlargement. 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 There is interstitial pulmonary; edema; ; Impression:; ; 1. Significant/large cardiomegaly with right atrial enlargement. Right atrial; and ventricular pacer leads are unchanged.; 2. Interstitial pulmonary edema; 3. Large posterior segment right upper lobe mass versus infiltrate. Recommend; correlation with CT chest with IV contrast; ; ; Signed by; Gwen Loyd MD 03/01/2016 12:30 P; Radiology Order: Chest, 1 view Test: Chest, 1 view REASON FOR EXAMINATION: POST CENTRAL LINE; CHEST, ONE VIEW:; ; HISTORY: Status-post central line placement.; ; COMPARISON: 03/01/2016; ; The technique utilized in obtaining the radiograph has magnified the cardiac; silhouette and accentuated the interstitial markings.; ; A right sided internal jugular central venous catheter is now present. The tip of; which is in the region of the superior vena cava. Patchy opacities are again seen; throughout the right lung status quo. There are no additional abnormal opacities.; Cardiomediastinal silhouette is unchanged. Dual chamber bipolar pace maker status; quo.; ; IMPRESSION:; ; Central line placement as described above with other findings.; ; ; Signed by; Marcio Watt DO 03/01/2016 04:40 P; Outcome: 12:19 The following High Risk Discharge criteria are identified:. rs3 12:54 Decision to Hospitalize by Provider. br1 17:26 Discharge Assessment: patient administered narcotics - no. Condition: stable. No rs3 special radiology studies were completed. Admission hand-off: Report called to unit staff. Property :Personal belongings accompany Pt. 17:32 Patient left the ED. rs3 Signatures: Dispatcher [employer] EDDE Kelle Bell, Associate Professor Of English Unit lbd Erich Rose MD MD br1 Dorothy Durham RN RN rs3 Raymond Delgado,RT RT rs5 Liudmila Nunez RN RN pml Conner, Teresa, RN RN ttb Joel Gutierrez, WORD PROCESSOR WORD PROCESSOR Zechariah Dunn rn1 Saul Sheldon, Reg Reg pm4 Corrections: (The following items were deleted from the chart) 17:13 17:11 Pulse 128bpm; Monitor; Pulse Ox 94%; rs3 rs3 MTDD
[2016-03-01 17:41] LABS: ABG BASE EXCESS -3.2 (-2.0-2.0); ABG HCO3 22.2 MEQ/L (22.0-26.0); ABG PARTIAL PRESSURE CO2 41.3 mmHg (35.0-45.0); ABG PARTIAL PRESSURE O2 79.2 mmHg (75.0-100.0); ABG STANDARD HCO3 21.8 MEQ/L (22.0-26.0); ABG TOTAL CO2 23.5 MEQ/L (23.0-31.0); ABG pH (ARTERIAL) 7.349 UNITS (7.350-7.450)
[2016-03-01] MEDS ORDERED: ATENOLOL 50 MG TAB PO SCH (18:00)
[2016-03-01] MEDS: CYANOCOBALAMIN 500 MCG TAB PO SCH (18:15)
[2016-03-01] MEDS: VITAMIN D 1,000 INTERNATIONAL UNITS TABLET PO SCH (18:15)
[2016-03-01] MEDS: PYRIDOXINE 50 MG TAB PO SCH (18:15)
[2016-03-01] MEDS: POTASSIUM CHLORIDE 10 MEQ SR TABLET PO SCH (18:15)
[2016-03-01] MEDS: CALCIUM/VITAMIN D 500 MG TAB PO SCH (18:15)
--- NOTE | 2016-03-01 18:57 | CCN ---
DATE: 03/01/2016 CRITICAL CARE NOTE REASON FOR CONSULTATION: Respiratory failure. I was called urgently by Dr. Samuel and requested by Dr. Buckner to see this 85-year-old female who presented with acute right upper lobe pneumonia and respiratory distress. She had hypercarbic respiratory failure and was placed on bilevel. I was asked to manage bilevel ventilation. The patient is a DO NOT RESUSCITATE (DNR), has a known history reportedly of cor pulmonale. The patient states that she saw me in my office personally for pulmonary hypertension. I do not have these records available to me at this point in time. She also has known congestive heart failure with left-sided dysfunction, chronica atrial fibrillation (a fib) and is followed by the cardiology service. She has known "congestive liver." She is unable to respond to any questions at this point in time due to the fact that she is on bilevel, but she states she recognizes me from that visit. She denies chest pain at this time. In the emergency room, initially she was given volume, then she was given diuresis. A central line was also placed for hypotension. She is a DNR. Apparently accepting bilevel noninvasive therapy. PAST MEDICAL HISTORY: As mentioned above, reported cor pulmonale. Left-sided diastolic dysfunction. History of passive hepatopathy. Lower extremity varicosities. History of sick sinus syndrome, status post pacer. Atrial fibrillation. Hypercholesterolemia. Hypertension. Gastroesophageal reflux. Osteoarthritis. SOCIAL HISTORY: The patient lives with her . She has been the occasional caregiver. She is a former smoker, quit several years ago according to the history and physical (H and P) and denies alcohol intake. No illicit drugs. FAMILY HISTORY: She has a brother who from lung cancer. No history of pulmonary hypertension in her family that she is aware of. REVIEW OF SYSTEMS: Unobtainable due to her current clinical situation. PHYSICAL EXAMINATION: Temperature is 98.6, blood pressure is 95/51, pulse is 116 with frequent PVCs and in atrial fibrillation rhythm, respiratory rate is 34, oxygen saturation is 97% on an FIO2 of 0.50. General: The patient is tachypneic but arousable. HEENT: Sclerae are clear and anicteric. Pupils equal and reactive to light. Mucous membranes are moist without lesions. Tongue is midline. Neck is supple. No tracheal deviation. Jugular venous pressure (JVP) is elevated. Lymph: No cervical, supraclavicular or axillary adenopathy. Cardiac: Distant, S1, S2 without audible murmur, rub or gallop. S1, S2 are irregularly irregular. There is chronic nonpitting edema in the lower extremities. Pulmonary: Decreased breath sounds throughout both lung emerson. There is a slight prolongation of the expiratory phase. No accessory muscle use. Abdomen is soft, nontender, nondistended. There is hepatomegaly. I do not palpate any splenomegaly. I do not auscultate any bruits of the abdomen. No masses or hernia. Extremities: No cyanosis or clubbing. Minimal lower extremity edema as mentioned above, nonpitting in nature with chronic varicosities. Skin is pale without rash, jaundice, bruising. Neurologic: No unilateral weakness or tremor. Musculoskeletal: Significant muscle wasting. Chest x-ray shows a right upper lobe pneumonia and pacer leads are in place with cardiomegaly. Lactate is 2.2. Influenza is negative. BNP is 1550. Arterial blood gas initially was 7.44, 34, 76. Now arterial blood gas is 7.16, 56.3, 86, FIO2. She has a leukocytosis with a white blood cell count of 29.8, hemoglobin of 12.6, hematocrit of 40.8 with a platelet count of 644. Sodium is low at 134, potassium 4.9, chloride 98, bicarbonate of 26, BUN of 85, creatinine of 1.89. Lactic acid went from 2.2 to 2.1, calcium is 9.9, troponin is elevated at 1.6. IMPRESSION: 1. Respiratory failure, combination of hypercarbic hypoxic respiratory failure. Will support on bilevel noninvasive as long as the patient is able to tolerate this. She is a DNR, does not want to proceed to invasive mechanical ventilation. I agree with treating pneumonia with ceftriaxone, azithromycin. Continue to monitor for cardiac effects of azithromycin. 2. Coronary artery disease with non-ST elevation myocardial infarction (UT). Likely from the severity of her illness. Recommend rate control as much as possible without precipitating hypotension. 3. Metabolic acidosis. Likely from lactic acidosis and possible sepsis. Will monitor fluid status. 4. Hyponatremia. 5. Renal failure. 6. Leukocytosis. Overall the patient's prognosis is extremely guarded. High risk of , especially due to the fact that she is DO NOT RESUSCITATE/DO NOT INTUBATE (DNR/DNI) with severe metabolic respiratory acidosis. As requested, will provide support with bilevel noninvasive therapy and continue to monitor for recovery. Critical care time was 1 hour. This excludes all procedures.
[2016-03-01] MEDS: MIDODRINE 5 MG TAB PO SCH (19:31)
[2016-03-01] MEDS: DABIGATRAN ETEXILATE 75 MG CAP (PRADAXA) PO SCH (20:20)
[2016-03-01] MEDS: DOCUSATE SODIUM 100 MG CAP PO SCH (20:20)
[2016-03-02] VITALS (17 sets, daily range): BP systolic 81–104; BP diastolic 51–70
[2016-03-02 03:39] LABS: ALBUMIN 2.5 GM/DL (3.2-5.2); CALCIUM LEVEL 8.8 MG/DL (8.8-10.2); CREATININE FOR GFR 1.92 MG/DL (0.55-1.02); GLOMERULAR FILTRATION RATE 26.3 (>32); MAGNESIUM LEVEL 2.7 MG/DL (1.8-2.4); PHOSPHORUS LEVEL 5.5 MG/DL (2.5-4.9); POTASSIUM SERUM 4.8 MEQ/L (3.5-5.1)
[2016-03-02 03:42] LABS: MEAN CORPUSCULAR HEMOGLOBIN 28.8 pg (27.0-33.0); MEAN CORPUSCULAR HGB CONC 30.5 g/dl (32.0-36.5); MEAN CORPUSCULAR VOLUME 94.6 fl (80.0-96.0); PLATELET COUNT, AUTOMATED 585 k/mm3 (150-450); RED CELL DISTRIBUTION WIDTH 16.5 % (11.5-14.5)
[2016-03-02 04:29] LABS: BANDS 5 % (< 11); NUCLEATED RED BLOOD CELL 1 % (0-0); TOXIC VACUOLATION 1+
[2016-03-02 04:30] LABS: ANISOCYTOSIS 1+
[2016-03-02 04:31] LABS: POIKILOCYTOSIS 1+
[2016-03-02] MEDS ORDERED: SODIUM CHLORIDE 0.9% INJ 10 ML SYR IV PRN (04:45)
[2016-03-02] MEDS: SODIUM CHLORIDE 0.9% INJ 10 ML SYR IV SCH ×3 (06:12→22:27)
[2016-03-02] MEDS: LEVOTHYROXINE 0.05 MG TAB (50 MCG) PO SCH (06:12)
--- NOTE | 2016-03-02 08:32 | ECGEPIP ---
Stationary ECG Study - ED Test Date: 2016-03-01 Pat Name: Mundo VILLA Department: Room: - Gender: F Office Director: rn : 1930 Requested By: ANA Browne Order Number: [id number] Reading MD: Joseline Norman Measurements Intervals [place] Rate: 114 P: TX: 0 QRS: 81 QRSD: 84 T: -42 QT: 297 QTc: 409 Interpretive Statements ATRIAL FIBRILLATION WITH RAPID VENTRICULAR RESPONSE ST DEVIATION AND MODERATE T-WAVE ABNORMALITY, CONSIDER ISCHEMIA INCREASED RATE 02/09/15 Electronically Signed On 03-02-2016 8:32:26 EST by Joseline Norman
[2016-03-02] MEDS: POTASSIUM CHLORIDE 10 MEQ SR TABLET PO SCH (09:00)
[2016-03-02] MEDS ORDERED: TORSEMIDE 20 MG TAB PO SCH (09:00)
[2016-03-02] MEDS: DOCUSATE SODIUM 100 MG CAP PO SCH ×2 (09:20→22:27)
[2016-03-02] MEDS: CALCIUM/VITAMIN D 500 MG TAB PO SCH (09:22)
[2016-03-02] MEDS: DABIGATRAN ETEXILATE 75 MG CAP (PRADAXA) PO SCH ×2 (09:22→22:27)
[2016-03-02] MEDS: MIDODRINE 5 MG TAB PO SCH ×2 (09:23→16:08)
[2016-03-02] MEDS: CYANOCOBALAMIN 500 MCG TAB PO SCH (09:23)
[2016-03-02] MEDS: VITAMIN D 1,000 INTERNATIONAL UNITS TABLET PO SCH (09:23)
[2016-03-02] MEDS: PYRIDOXINE 50 MG TAB PO SCH (09:24)
[2016-03-02 10:01] LABS: ABG BASE EXCESS -3.3 (-2.0-2.0); ABG HCO3 21.3 MEQ/L (22.0-26.0); ABG PARTIAL PRESSURE CO2 37.1 mmHg (35.0-45.0); ABG STANDARD HCO3 21.6 MEQ/L (22.0-26.0); ABG TOTAL CO2 22.4 MEQ/L (23.0-31.0); ABG pH (ARTERIAL) 7.377 UNITS (7.350-7.450)
--- NOTE | 2016-03-02 10:10 | REP ---
Portable chest x-ray: Sitting upright AP view. History: Pneumonia. Comparison chest x-ray is from March 01, 2016. Findings: A bipolar pacemaker is seen in place via the left side. Marked cardiomegaly is observed. A right internal jugular line terminates in the expected location of the superior vena cava. Oxygen tubing and EKG monitoring electrodes are seen. There is extensive consolidation in the right upper lobe and increased density is seen in the right middle lobe distribution consistent with pneumonia. Impression: Right upper lobe and right middle lobe consolidation consistent with pneumonia unchanged. Cardiomegaly with pacemaker. Signed by Hiro Renteria MD 03/02/2016 10:12 A
[2016-03-02] MEDS: PANTOPRAZOLE 40MG TAB (PROTONIX) PO SCH (10:22)
[2016-03-02] MEDS: cefTRIAXone SOD 2 GM in D5W MINI-BAG PLUS 50 ML IV SCH (11:47)
[2016-03-02] MEDS: AZITHROMYCIN 500 MG, VIAL MATE ADAPTER 1 EACH in D5W 250 ML IV SCH (13:11)
--- NOTE | 2016-03-02 15:15 | IPNPDOC ---
Text Note Date of Service The patient was seen on 03/02/16 at 14:43. NOTE Subjective: Patient is a 85 year old female with a PMHx of Pulm HTN on Home O2 (2L ), R sided heart failure, Hepatic congestion, Varicosities, SSS s/p PM, Atrial fibrillatino (on anticoagulation), DLP, HTN, OA and GERD who presented to the ED with complaints of shortness of breath and productive cough (yellow-green) for 4 days duration. She had associated fever (100.4) and fatigue. Had a single episode of diarrhea. Patient notes that she has been having palpitations for some time, but no chest pain. On 03/01 patient was in the ER and was placed on BIPAP because of respiratory acidosis and a central line was placed because of hypotension. She was also noted to have atrial fibrillation with RVR. Patient was transferred to the ICU where she received IV fluid resuscitation. She did not require pressor support. Patient was seen and examined at the bedside today. She is currently off of the BIPAP. Her HR is currently at 110. Her breathing has improved significantly. She denies any chest pain. Reports a mild cough. Denies diarrhea or urinary symptoms. Objective: Vitals (See below) General: Lying in bed, no acute distress, AAOx3 HEENT: NC, AT CVS: Irregularly irregular, +S1S2 Lungs: Fair air entry b/l, + Rhonchi on R lung field Abdomen: Soft, ND, NT, +BSx4 Extremities: + Varicose veins, No edema, no calf tenderness Assessment and plan: 1. Acute hypercapnic on acute on chronic hypoxic respiratory failure - likely 2/ 2 severe sepsis 2/2 community acquired pneumonia - Presented with shortness of breath, productive cough, fever, fatigue - Physical revealed rhonchi at R lung emerson - CXR - Lactic acidosis - now normalized - Significant leukocytosis - has been trending down - Blood cultures 03/01: Positive for gram positive cocci in chains - Urine culture negative, Influenza negative - Sputum cultures pending - s/p BIPAP - c/w supplemental oxygen and incentive spirometry - c/w Ceftriaxone and Azithromycin (Day #2) - Will trend CRP - Pulmonary / Critical care following (Dr. Handley) - appreciate their input 2. Elevated cardiac enzymes - likely 2/2 NSTEMI, vs. demand ischemia - Patient denied chest pain, symptoms more consistent with pneumonia - EKG with atrial fibrillation with RVR - Elevated troponin; trending up - f/u 2D-ECHO - will repeat troponin - c/w Atenolol, - Cardiology consultation (Dr. Araujo) - appreciate their input 3. Right sided heart failure - likely 2/2 pulmonary hypertension - ECHO with Stage II diastolic dysfunction, preserved EF - History of hepatic congestion and varicose veins - Elevated BNP on admission at 1550 - No evidence of fluid overload at this time - s/p Lasix 80mg in the ER - Will hold home dose of torsemide 20mg PO QD 4. Atrial fibrillation with RVR; likely uncontrolled 2/2 sepsis - will restart atenolol when blood pressure stabilizes - Will continue with anticoagulation with Pradaxa - Cardiology consultation (Dr. Araujo) - appreciate their input 5. ANGIE on CKD 3 - likely 2/2 sepsis, medications (diuresis) - Cr on admission of 1.89; baseline creatinine of 1.1 - will hold off diuretics at this point - will check urine electrolytes, urine osmolality - will monitor Cr 6. Normocytic anemia - Hg baseline of 12-13, currently at 11 - Will continue to monitor 7. Hypothyroidism - c/w synthroid 8. SSS - s/p PM 9. Hypotension - BP has been low as an outpatient - c/w Midodrine 5 BID 10. DLP 11. Osteoarthritis - c/w tylenol 12. GERD - c/w protonix 13. DVT prophylaxis - on full anticoagulation with Pradaxa VS,Fishbone, I+O VS, Fishbone, I+O Laboratory Tests 03/02/16 03:01 Anion Gap 13, Red Blood Count 3.96 L, Mean Corpuscular Volume 94.6, Mean Corpuscular Hemoglobin 28.8, Mean Corpuscular Hemoglobin Concent 30.5 L, Red Cell Distribution Width 16.5 H, Neutrophils (%) (Auto) , Lymphocytes (%) (Auto) , Monocytes (%) (Auto) , Eosinophils (%) (Auto) , Basophils (%) (Auto) , Neutrophils # (Auto) , Lymphocytes # (Auto) , Monocytes # (Auto) , Eosinophils # (Auto) , Basophils # (Auto) Vital Signs Date Time Temp Pulse Resp B/P Pulse Ox O2 Delivery O2 Flow Rate FiO2 03/02/16 12:00 96.2 110 20 94/56 94 Nasal Cannula 5.0 03/01/16 21:00 50 I&O- Last 24 Hours up to 6 AM 03/02/16 06:00 Intake Total 740 ml Output Total 585 ml Balance 155 ml ANGELIKA SARGENT MD Mar 02, 2016 15:06
[2016-03-03 00:03] VITALS: BP 96/56
[2016-03-03 04:21] VITALS: BP 99/62
[2016-03-03 04:58] LABS: BASO # 0.4 K/mm3 (0.0-0.2); BASO % 1.7 % (0.0-1.0); EOS # 0.2 K/mm3 (0.0-0.50); EOS % 0.8 % (0.0-3.0); LARGE UNSTAINED CELL # 0.3 K/mm3 (0.0-0.4); LARGE UNSTAINED CELL % 1.2 % (0.0-4.0); LYMPH # 1.2 K/mm3 (1.5-4.5); LYMPH % 4.1 % (24.0-44.0); MEAN CORPUSCULAR HEMOGLOBIN 28.6 pg (27.0-33.0); MEAN CORPUSCULAR HGB CONC 30.8 g/dl (32.0-36.5); MONO % 4.6 % (0.0-5.0); NEUTROPHILS # 19.9 K/mm3 (1.8-7.7); NEUTROPHILS % 87.6 % (36.0-66.0); PLATELET COUNT, AUTOMATED 685 k/mm3 (150-450); RED CELL DISTRIBUTION WIDTH 17.2 % (11.5-14.5); WHITE BLOOD COUNT 22.7 K/mm3 (4.0-10.0)
[2016-03-03] MEDS: SODIUM CHLORIDE 0.9% INJ 10 ML SYR IV SCH ×3 (05:19→21:11)
[2016-03-03] MEDS: LEVOTHYROXINE 0.05 MG TAB (50 MCG) PO SCH (05:19)
[2016-03-03 06:09] LABS: ALBUMIN 2.3 GM/DL (3.2-5.2); CALCIUM LEVEL 8.3 MG/DL (8.8-10.2); CREATININE FOR GFR 1.89 MG/DL (0.55-1.02); GLOMERULAR FILTRATION RATE 26.8 (>32); MAGNESIUM LEVEL 2.7 MG/DL (1.8-2.4); PHOSPHORUS LEVEL 5.1 MG/DL (2.5-4.9); POTASSIUM SERUM 4.9 MEQ/L (3.5-5.1)
[2016-03-03 08:00] VITALS: BP 92/58
[2016-03-03] MEDS: POTASSIUM CHLORIDE 10 MEQ SR TABLET PO SCH (09:00)
[2016-03-03] MEDS: CALCIUM/VITAMIN D 500 MG TAB PO SCH ×2 (09:00→09:41)
[2016-03-03] MEDS: DABIGATRAN ETEXILATE 75 MG CAP (PRADAXA) PO SCH ×2 (09:41→21:11)
[2016-03-03] MEDS: VITAMIN D 1,000 INTERNATIONAL UNITS TABLET PO SCH (09:41)
[2016-03-03] MEDS: MIDODRINE 5 MG TAB PO SCH ×2 (09:41→16:04)
[2016-03-03] MEDS: CYANOCOBALAMIN 500 MCG TAB PO SCH (09:41)
[2016-03-03] MEDS: PANTOPRAZOLE 40MG TAB (PROTONIX) PO SCH (09:41)
[2016-03-03] MEDS: PYRIDOXINE 50 MG TAB PO SCH (09:41)
[2016-03-03] MEDS: DOCUSATE SODIUM 100 MG CAP PO SCH ×2 (09:47→21:11)
[2016-03-03] MEDS: cefTRIAXone SOD 2 GM in D5W MINI-BAG PLUS 50 ML IV SCH (11:57)
[2016-03-03 12:00] VITALS: BP 95/55
[2016-03-03] MEDS: AZITHROMYCIN 500 MG, VIAL MATE ADAPTER 1 EACH in D5W 250 ML IV SCH (13:36)
[2016-03-03] MEDS ORDERED: LACTULOSE 20 GM/30 ML SYRUP UD PO PRN (13:45)
--- NOTE | 2016-03-03 15:18 | IPNPDOC ---
Text Note Date of Service The patient was seen on 03/03/16 at 15:11. NOTE Subjective: Patient is a 85 year old female with a PMHx of Pulm HTN on Home O2 (2L ), R sided heart failure, Hepatic congestion, Varicosities, SSS s/p PM, Atrial fibrillatino (on anticoagulation), DLP, HTN, OA and GERD who presented to the ED with complaints of shortness of breath and productive cough (yellow-green) for 4 days duration. She had associated fever (100.4) and fatigue. Had a single episode of diarrhea. Patient notes that she has been having palpitations for some time, but no chest pain. On 03/01 patient was in the ER and was placed on BIPAP because of respiratory acidosis and a central line was placed because of hypotension. She was also noted to have atrial fibrillation with RVR. Patient was transferred to the ICU where she received IV fluid resuscitation. She did not require pressor support. Patient was seen and examined at the bedside today. Currently her oxygen requirements are decreasing, she notes that she is feeling better. Denies chest pain, palpitations. Still notes cough. Objective: Vitals (See below) General: Lying in bed, no acute distress, AAOx3 HEENT: NC, AT CVS: Irregularly irregular, +S1S2 Lungs: Fair air entry b/l, + Rhonchi on R lung field Abdomen: Soft, ND, NT, +BSx4 Extremities: + Varicose veins, No edema, no calf tenderness Assessment and plan: 1. Acute hypercapnic on acute on chronic hypoxic respiratory failure - likely 2/ 2 severe sepsis 2/2 community acquired pneumonia - Presented with shortness of breath, productive cough, fever, fatigue - Physical revealed rhonchi at R lung emerson - CXR 03/02: Right upper lobe and right middle lobe consolidation consistent with pneumonia - Lactic acidosis - now normalized - Significant leukocytosis and CRP - has been trending down - Blood cultures 03/01: Positive for gram positive cocci in chains - Urine culture negative, Influenza negative - Sputum cultures (preliminary) many gram positive cocci in pairs and clusters - s/p BIPAP - c/w supplemental oxygen and incentive spirometry - c/w Ceftriaxone and Azithromycin (Day #3) - Pulmonary / Critical care following (Dr. Handley) - appreciate their input 2. Elevated cardiac enzymes - possible demand ischemia, less likely 2/2 NSTEMI , - Patient denied chest pain, symptoms more consistent with pneumonia - EKG with atrial fibrillation with RVR - Elevated troponin; trending up - most recent has trended down - f/u 2D-ECHO - Will restart atenolol with BP improves - Cardiology consultation (Dr. Araujo) - appreciate their input 3. Right sided heart failure - likely 2/2 pulmonary hypertension - ECHO with Stage II diastolic dysfunction, preserved EF - History of hepatic congestion and varicose veins - Elevated BNP on admission at 1550 - No evidence of fluid overload at this time - s/p Lasix 80mg in the ER - Will hold home dose of torsemide 20mg PO QD 4. Atrial fibrillation with RVR; likely uncontrolled 2/2 sepsis - will restart atenolol when blood pressure stabilizes - Will continue with anticoagulation with Pradaxa - Cardiology consultation (Dr. Araujo) - appreciate their input 5. ANGIE on CKD 3 - likely 2/2 sepsis, medications (diuresis) - Cr on admission of 1.89; baseline creatinine of 1.1 - will hold off diuretics at this point - will check urine electrolytes, urine osmolality - will monitor Cr 6. Normocytic anemia - Hg baseline of 12-13, currently at 11 - Will continue to monitor 7. Hypothyroidism - c/w synthroid 8. SSS - s/p PM 9. Hypotension - BP has been low as an outpatient - c/w Midodrine 5 BID 10. DLP 11. Osteoarthritis - c/w tylenol 12. GERD - c/w protonix 13. DVT prophylaxis - on full anticoagulation with Pradaxa VS,Fishbone, I+O VS, Fishbone, I+O Laboratory Tests 03/03/16 04:47 Anion Gap 13, Red Blood Count 4.27, Mean Corpuscular Volume 93.0, Mean Corpuscular Hemoglobin 28.6, Mean Corpuscular Hemoglobin Concent 30.8 L, Red Cell Distribution Width 17.2 H, Neutrophils (%) (Auto) 87.6 H, Lymphocytes (%) ( Auto) 4.1 L, Monocytes (%) (Auto) 4.6, Eosinophils (%) (Auto) 0.8, Basophils (% ) (Auto) 1.7 H, Neutrophils # (Auto) 19.9 H, Lymphocytes # (Auto) 1.2 L, Monocytes # (Auto) 1.0 H, Eosinophils # (Auto) 0.2, Basophils # (Auto) 0.4 H Vital Signs Date Time Temp Pulse Resp B/P Pulse Ox O2 Delivery O2 Flow Rate FiO2 03/03/16 12:00 96.6 70 18 95/55 95 High Flow Cannula 4.0 03/01/16 21:00 50 I&O- Last 24 Hours up to 6 AM 03/03/16 06:00 Intake Total 965 ml Output Total 1015 ml Balance -50 ml ANGELIKA SARGENT MD Mar 03, 2016 15:18
[2016-03-03 16:00] VITALS: BP 105/62
[2016-03-03 16:33] LABS: OSMOLALITY URINE 438 MOSM/KG (500-800)
[2016-03-03 22:11] VITALS: BP 121/58
[2016-03-04 00:12] VITALS: BP 109/59
[2016-03-04 05:00] VITALS: BP 107/64
[2016-03-04] MEDS: SODIUM CHLORIDE 0.9% INJ 10 ML SYR IV SCH ×3 (05:00→21:12)
[2016-03-04] MEDS: LEVOTHYROXINE 0.05 MG TAB (50 MCG) PO SCH (05:01)
[2016-03-04 05:12] LABS: BASO % 0.2 % (0.0-1.0); EOS # 0.1 K/mm3 (0.0-0.50); EOS % 0.4 % (0.0-3.0); LARGE UNSTAINED CELL # 0.4 K/mm3 (0.0-0.4); LARGE UNSTAINED CELL % 2.1 % (0.0-4.0); LYMPH # 0.9 K/mm3 (1.5-4.5); LYMPH % 5.3 % (24.0-44.0); MEAN CORPUSCULAR HEMOGLOBIN 28.9 pg (27.0-33.0); MEAN CORPUSCULAR HGB CONC 31.4 g/dl (32.0-36.5); MEAN CORPUSCULAR VOLUME 92.1 fl (80.0-96.0); MONO % 5.8 % (0.0-5.0); NEUTROPHILS # 14.2 K/mm3 (1.8-7.7); NEUTROPHILS % 86.2 % (36.0-66.0); PLATELET COUNT, AUTOMATED 620 k/mm3 (150-450); RED CELL DISTRIBUTION WIDTH 16.4 % (11.5-14.5); WHITE BLOOD COUNT 16.5 K/mm3 (4.0-10.0)
[2016-03-04 06:15] LABS: ALBUMIN 2.3 GM/DL (3.2-5.2); CALCIUM LEVEL 8.5 MG/DL (8.8-10.2); CREATININE FOR GFR 1.39 MG/DL (0.55-1.02); GLOMERULAR FILTRATION RATE 38.2 (>32); MAGNESIUM LEVEL 2.8 MG/DL (1.8-2.4); POTASSIUM SERUM 4.4 MEQ/L (3.5-5.1)
[2016-03-04 07:15] VITALS: BP 108/72
[2016-03-04] MEDS: MIDODRINE 5 MG TAB PO SCH ×2 (09:20→16:35)
[2016-03-04] MEDS: DOCUSATE SODIUM 100 MG CAP PO SCH ×2 (09:20→21:11)
[2016-03-04] MEDS: VITAMIN D 1,000 INTERNATIONAL UNITS TABLET PO SCH (09:20)
[2016-03-04] MEDS: PANTOPRAZOLE 40MG TAB (PROTONIX) PO SCH (09:20)
[2016-03-04] MEDS: CALCIUM/VITAMIN D 500 MG TAB PO SCH (09:21)
[2016-03-04] MEDS: PYRIDOXINE 50 MG TAB PO SCH (09:21)
[2016-03-04] MEDS: ATENOLOL 12.5MG PER 1/2 TABLET PO SCH ×2 (09:21→21:00)
[2016-03-04] MEDS: CYANOCOBALAMIN 500 MCG TAB PO SCH (09:21)
[2016-03-04] MEDS: POTASSIUM CHLORIDE 10 MEQ SR TABLET PO SCH (09:21)
[2016-03-04] MEDS: DABIGATRAN ETEXILATE 75 MG CAP (PRADAXA) PO SCH ×2 (11:12→21:11)
[2016-03-04] MEDS: cefTRIAXone SOD 2 GM in D5W MINI-BAG PLUS 50 ML IV SCH (11:51)
[2016-03-04 12:00] VITALS: BP 114/64
[2016-03-04] MEDS: AZITHROMYCIN 500 MG, VIAL MATE ADAPTER 1 EACH in D5W 250 ML IV SCH (12:35)
--- NOTE | 2016-03-04 15:02 | IPNPDOC ---
Text Note Date of Service The patient was seen on 03/04/16 at 14:58. NOTE Subjective: Patient is a 85 year old female with a PMHx of Pulm HTN on Home O2 (2L ), R sided heart failure, Hepatic congestion, Varicosities, SSS s/p PM, Atrial fibrillatino (on anticoagulation), DLP, HTN, OA and GERD who presented to the ED with complaints of shortness of breath and productive cough (yellow-green) for 4 days duration. She had associated fever (100.4) and fatigue. Had a single episode of diarrhea. Patient notes that she has been having palpitations for some time, but no chest pain. On 03/01 patient was in the ER and was placed on BIPAP because of respiratory acidosis and a central line was placed because of hypotension. She was also noted to have atrial fibrillation with RVR. Patient was transferred to the ICU where she received IV fluid resuscitation. She did not require pressor support. Patient was seen and examined at the bedside today. Continues to go down on oxygen requirements. Does not have any additional complaints. Objective: Vitals (See below) General: Lying in bed, no acute distress, AAOx3 HEENT: NC, AT CVS: Irregularly irregular, +S1S2 Lungs: Fair air entry b/l, + Rhonchi on R lung field Abdomen: Soft, ND, NT, +BSx4 Extremities: + Varicose veins, No edema, no calf tenderness Assessment and plan: 1. Acute hypercapnic on acute on chronic hypoxic respiratory failure - likely 2/ 2 severe sepsis 2/2 community acquired pneumonia - Presented with shortness of breath, productive cough, fever, fatigue - Physical revealed rhonchi at R lung emerson - CXR 03/02: Right upper lobe and right middle lobe consolidation consistent with pneumonia - s/p Lactic acidosis - Leukocytosis and CRP continue to trend down - Blood cultures 03/01: Positive for gram positive sterp pneumonia; repeat cultures 03/03 negative - Sputum with strep pneumonia - Influenza negative - s/p BIPAP - c/w supplemental oxygen and incentive spirometry - c/w Ceftriaxone and Azithromycin (Day #5) - will discontinue azithromycin 2. Elevated cardiac enzymes - possible demand ischemia, less likely 2/2 NSTEMI , - Patient denied chest pain, symptoms more consistent with pneumonia - EKG with atrial fibrillation with RVR - Elevated troponin; trending up - most recent has trended down - f/u 2D-ECHO - Restarted atenolol today at 12.5 BID 3. Right sided heart failure - likely 2/2 pulmonary hypertension - ECHO with Stage II diastolic dysfunction, preserved EF - History of hepatic congestion and varicose veins - Elevated BNP on admission at 1550 - No evidence of fluid overload at this time - s/p Lasix 80mg in the ER - Will continue to hold home dose of torsemide 20mg PO QD 4. Atrial fibrillation with RVR; likely uncontrolled 2/2 sepsis - Restarted atenolol today at 12.5 BID - Will continue with anticoagulation with Pradaxa 5. ANGIE on CKD 3 - likely 2/2 sepsis, medications (diuresis) - Cr on admission of 1.89; baseline creatinine of 1.1 - will hold off diuretics at this point - Cr has begun to trend down - Will continue to hold diuretics at this time 6. Normocytic anemia - Hg baseline of 12-13, currently at 11 - Will continue to monitor 7. Hypothyroidism - c/w synthroid 8. SSS - s/p PM 9. Hypotension - BP has been low as an outpatient - c/w Midodrine 5 BID 10. DLP 11. Osteoarthritis - c/w tylenol 12. GERD - c/w protonix 13. DVT prophylaxis - on full anticoagulation with Pradaxa VS,Fishbone, I+O VS, Fishbone, I+O Laboratory Tests 03/04/16 04:59 Anion Gap 10, Red Blood Count 3.97 L, Mean Corpuscular Volume 92.1, Mean Corpuscular Hemoglobin 28.9, Mean Corpuscular Hemoglobin Concent 31.4 L, Red Cell Distribution Width 16.4 H, Neutrophils (%) (Auto) 86.2 H, Lymphocytes (%) ( Auto) 5.3 L, Monocytes (%) (Auto) 5.8 H, Eosinophils (%) (Auto) 0.4, Basophils ( %) (Auto) 0.2, Neutrophils # (Auto) 14.2 H, Lymphocytes # (Auto) 0.9 L, Monocytes # (Auto) 1.0 H, Eosinophils # (Auto) 0.1, Basophils # (Auto) 0.0 Vital Signs Date Time Temp Pulse Resp B/P Pulse Ox O2 Delivery O2 Flow Rate FiO2 03/04/16 12:39 Nasal Cannula 4.0 03/04/16 12:00 96.4 95 20 114/64 97 03/01/16 21:00 50 I&O- Last 24 Hours up to 6 AM 03/04/16 06:00 Intake Total 1265 ml Output Total 1575 ml Balance -310 ml ANGELIKA SARGENT MD Mar 04, 2016 15:02
[2016-03-04 16:00] VITALS: BP 111/53
[2016-03-04 20:00] VITALS: BP 104/56
[2016-03-05] VITALS: BP 112/57
[2016-03-05 04:00] VITALS: BP 114/67
[2016-03-05] MEDS: LEVOTHYROXINE 0.05 MG TAB (50 MCG) PO SCH (05:21)
[2016-03-05] MEDS: SODIUM CHLORIDE 0.9% INJ 10 ML SYR IV SCH ×3 (05:21→21:15)
[2016-03-05 05:37] LABS: BASO # 0.1 K/mm3 (0.0-0.2); BASO % 0.4 % (0.0-1.0); EOS # 0.2 K/mm3 (0.0-0.50); EOS % 1.5 % (0.0-3.0); LARGE UNSTAINED CELL # 0.4 K/mm3 (0.0-0.4); LARGE UNSTAINED CELL % 2.6 % (0.0-4.0); LYMPH # 1.1 K/mm3 (1.5-4.5); MEAN CORPUSCULAR HEMOGLOBIN 28.6 pg (27.0-33.0); MEAN CORPUSCULAR HGB CONC 30.5 g/dl (32.0-36.5); MEAN CORPUSCULAR VOLUME 93.6 fl (80.0-96.0); MONO # 1.1 K/mm3 (0.0-0.8); MONO % 6.9 % (0.0-5.0); NEUTROPHILS # 12.7 K/mm3 (1.8-7.7); NEUTROPHILS % 81.6 % (36.0-66.0); PLATELET COUNT, AUTOMATED 603 k/mm3 (150-450); RED CELL DISTRIBUTION WIDTH 16.4 % (11.5-14.5); WHITE BLOOD COUNT 15.6 K/mm3 (4.0-10.0)
[2016-03-05 06:16] LABS: ALBUMIN 2.3 GM/DL (3.2-5.2); CALCIUM LEVEL 8.9 MG/DL (8.8-10.2); CREATININE FOR GFR 1.11 MG/DL (0.55-1.02); GLOMERULAR FILTRATION RATE 49.5 (>32); MAGNESIUM LEVEL 2.7 MG/DL (1.8-2.4); PHOSPHORUS LEVEL 2.8 MG/DL (2.5-4.9); POTASSIUM SERUM 4.3 MEQ/L (3.5-5.1)
[2016-03-05 07:30] VITALS: BP 120/71
[2016-03-05] MEDS: DOCUSATE SODIUM 100 MG CAP PO SCH ×2 (09:16→21:15)
[2016-03-05] MEDS: CALCIUM/VITAMIN D 500 MG TAB PO SCH (09:16)
[2016-03-05] MEDS: PYRIDOXINE 50 MG TAB PO SCH (09:16)
[2016-03-05] MEDS: DABIGATRAN ETEXILATE 75 MG CAP (PRADAXA) PO SCH ×2 (09:16→21:15)
[2016-03-05] MEDS: CYANOCOBALAMIN 500 MCG TAB PO SCH (09:16)
[2016-03-05] MEDS: VITAMIN D 1,000 INTERNATIONAL UNITS TABLET PO SCH (09:16)
[2016-03-05] MEDS: MIDODRINE 5 MG TAB PO SCH ×2 (09:17→15:39)
[2016-03-05] MEDS: PANTOPRAZOLE 40MG TAB (PROTONIX) PO SCH (09:17)
[2016-03-05] MEDS: POTASSIUM CHLORIDE 10 MEQ SR TABLET PO SCH (09:17)
[2016-03-05] MEDS: ATENOLOL 12.5MG PER 1/2 TABLET PO SCH ×2 (09:18→21:15)
--- NOTE | 2016-03-05 09:32 | EDDOCDS ---
Physician Documentation [facility] Name: Mundo Shrestha Age: 85 yrs Sex: Female : 1930 Arrival Date: 03/01/2016 Time: 10:53 Bed 4 Private MDThomas Jackson Disposition: 03/01/16 12:54 Hospitalization ordered by Melvin Buckner for Inpatient Admission. Preliminary diagnosis are Pneumonia, unspecified organism, Acute pulmonary edema, Non-ST elevation (NSTEMI) myocardial infarction. - Bed requested for M ICU. - Status is Inpatient Admission. rs3 - Condition is Stable. - Problem is new. - Symptoms are unchanged. Historical: - Allergies: Amiodarone; BARBITURATES; Darvon; Codeine Sulfate; Latex; Niacin; orange dye; surgical scrub; - Home Meds: 1. Vitamin B-6 50 mg Oral cap 200 mg daily (Last dose: 02/29/2016) 2. Vitamin B-12 500 mcg Oral lozg daily (Last dose: 02/29/2016) 3. magnesium oxide 250 mg Oral tab daily (Last dose: 02/29/2016) 4. vit d 1000 daily 5. torsemide 20 mg oral tab 1 tab once daily (Last dose: 02/29/2016 08:00) 6. midodrine 5 mg oral tab bid (Last dose: 02/29/2016 20:00) 7. levothyroxine 50 mcg Oral tab 1 tab once daily (Last dose: 02/29/2016) 8. Pradaxa 75 mg oral cap bid (Last dose: 02/29/2016) 9. atenolol 50 mg Oral tab 2 times per day (Last dose: 02/29/2016) 10. potassium chloride 10 mEq Oral cpER daily when taking the lasix (Last dose: 02/29/2016) 11. calcium carbonate with vit D 630/400 mg Oral daily (Last dose: 02/29/2016) 12. O2 3L nightly (Last dose: 03/01/2016) - PMHx: Atrial Fib; GERD; Hypercholesterolemia; Hypertension; Osteoarthritis; Pulmonary Hypertension; sick sinus syndrome; Varicose Veins; pacer; - PSHx: pacer placement; - Social history: Smoking status: Patient states former smoker of tobacco. No barriers to communication noted, Speaks appropriately for age. - Family history: Not pertinent. - : The pt / caregiver states he / she is on anticoagulants: Pradaxa (Dabigatran) Home medication list is obtained from a discharge med list. - Exposure Risk Screening:: None identified. Vital Signs: 03/01 11:04 BP 115 / 79 RA Sitting (auto/reg); Pulse 125; Resp 34; Temp 96.0(O); Pulse Ox 91% on 3 jrd lpm NC; Weight 59.87 kg / 131.99 lbs (R); Height 5 ft. 4 in. (162.56 cm) (R); Pain 0/10; 11:05 Weight 61.69 kg / 136 lbs; Height 62 in. (157.48 cm); ttb 11:34 BP 117 / 77 (auto/); rs3 11:35 Pulse 120 MON; Pulse Ox 94% ; rs3 11:43 Pulse 122 MON; Pulse Ox 94% ; rs3 11:45 BP 122 / 76 (auto/); rs3 11:59 BP 111 / 66 (auto/); rs3 12:00 Pulse 118 MON; Pulse Ox 96% ; rs3 12:14 BP 101 / 59 (auto/); rs3 12:15 Pulse 124 MON; Pulse Ox 96% ; rs3 12:29 BP 104 / 55 (auto/); rs3 12:32 Pulse 122 MON; Pulse Ox 96% ; rs3 12:44 BP 98 / 65 (auto/); rs3 12:45 Pulse 128 MON; Pulse Ox 94% ; rs3 12:59 BP 106 / 67 (auto/); rs3 13:01 Pulse 124 MON; Pulse Ox 94% ; rs3 13:14 BP 132 / 80 (auto/); rs3 13:15 Pulse 124 MON; Pulse Ox 94% ; rs3 13:29 BP 143 / 78 (auto/); rs3 13:30 Pulse 128 MON; Pulse Ox 94% ; rs3 13:44 BP 127 / 65 (auto/); rs3 13:45 Pulse 120 MON; Pulse Ox 92% ; rs3 14:10 BP 111 / 63 (auto/); rs3 14:11 Pulse 124 MON; Pulse Ox 85% ; rs3 14:14 BP 95 / 72 (auto/); rs3 14:15 Pulse 124 MON; Pulse Ox 84% ; rs3 14:29 BP 107 / 79 (auto/); rs3 14:30 Pulse 120 MON; Pulse Ox 84% ; rs3 14:44 BP 103 / 73 (auto/); rs3 14:44 Pulse 128 MON; Pulse Ox 88% ; rs3 14:59 BP 103 / 77 (auto/); rs3 14:59 Pulse 132 MON; Pulse Ox 90% ; rs3 15:14 BP 99 / 66 (auto/); rs3 15:15 Pulse 136 MON; Pulse Ox 94% ; rs3 15:29 BP 91 / 59 (auto/); rs3 15:31 Pulse 136 MON; Pulse Ox 93% ; rs3 15:45 BP 102 / 59 (auto/); rs3 15:49 Pulse 132 MON; Pulse Ox 95% ; rs3 15:59 BP 98 / 57 (auto/); rs3 16:00 Pulse 130 MON; Pulse Ox 95% ; rs3 16:14 BP 88 / 54 (auto/); rs3 16:15 Pulse 116 MON; Pulse Ox 96% ; rs3 16:29 BP 90 / 55 (auto/); rs3 16:30 Pulse 120 MON; Pulse Ox 97% ; rs3 16:44 BP 95 / 58 (auto/); rs3 16:45 Pulse 128 MON; Pulse Ox 98% ; rs3 16:59 BP 91 / 63 (auto/); rs3 17:00 Pulse 126 MON; Pulse Ox 95% ; rs3 17:11 Pulse 128 MON; Resp 28; Pulse Ox 94% ; rs3 17:23 Temp 98.5(TE); rn1 17:26 BP 91 / 63; Pulse 124 MON; Resp 28; Temp 98.5(TE); Pulse Ox 93% on BiPAP; Pain 0/10; rs3 11:05 Body Mass Index 24.87 (61.69 kg, 157.48 cm) ttb MDM: 11:05 Limo Driver/Pulse Ox/q 30 min VS ordered. br1 11:05 IV Saline Lock ordered. br1 11:05 Rhythm Strip to chart ordered. br1 11:05 Undress patient appropriately for examination ordered. br1 11:06 Basic Metabolic Profile Ordered. EDMS 11:06 CBC with Diff Ordered. EDMS 11:06 Cardiac Injury Profile Ordered. EDMS 11:06 Troponin Ordered. EDMS 11:06 ECG WITH READING ER PHYS+CARDIAG ordered. EDMS 11:07 BNP Ordered. EDMS 11:08 Chest, 2 View (pa\E\lat) Ordered. EDMS 11:19 -Blood Culture (Adults Only), peripheral from different site, or from device/port/PICC br1 etc. if present ordered. 11:19 Call Respiratory ordered. br1 11:20 Oxygen at 4L/Min NC or Home dosage ordered. br1 11:20 Lactic Acid (Back tube on ice) Ordered. EDMS 11:20 -Arterial Blood Gas Ordered. EDMS 11:20 -Blood Culture Ordered. EDMS 11:21 Call Respiratory complete. lbd 11:21 -Blood Culture (Adults Only), peripheral from different site, or from device/port/PICC lbd etc. if present complete. 11:23 BLOOD CULTURES Ordered. EDMS 12:21 cefTRIAXone 1 grams IVPB once over 30 mins; dilute in 50mL of NS or D5W ordered. br1 12:21 azithromycin 500 mg IVPB once over 1 hrs; dilute in 250mL of D5W or NS ordered. br1 12:33 Financial registration complete. pm4 12:44 LACTIC ACID LEVEL, LACTATE Ordered. EDMS 12:46 PHYSICAL THERAPY EVAL & TREAT ordered. EDMS 12:46 Basic Metabolic Profile Reviewed. br1 12:46 CBC with Diff Reviewed. br1 12:46 Cardiac Injury Profile Reviewed. br1 12:46 Troponin Reviewed. br1 12:46 BNP Reviewed. br1 12:46 Lactic Acid (Back tube on ice) Reviewed. br1 12:46 -Arterial Blood Gas Reviewed. br1 12:46 Admission / Observation Status ordered. EDMS 12:46 2 GRAM SODIUM DIET ordered. EDMS 12:53 [facility] Payment Agreement was scanned into [employer] and attached to record. pm4 13:06 CARDIAC MARKER PANEL Ordered. EDMS 13:06 SPUTUM CULTURE AND GRAM STAIN Ordered. EDMS 13:11 NS 0.9% 500 ml IV at bolus once ordered. br1 13:48 LEGIONELLA ANTIGEN URINE Ordered. EDMS 13:48 URINE STREP PNEUMONIAE ANTIGEN Ordered. EDMS 13:48 INFLUENZA A&B RAPID ANTIGEN Ordered. EDMS 13:55 URINALYSIS Ordered. EDMS 13:55 URINE CULTURE Ordered. EDMS 14:17 ED course: Seen by Dr. Buckner in ED, will admit patient, requested 500 cc normal br1 saline bolus x 1. 14:19 Furosemide 80 mg IVP once ordered. rs3 14:19 Louis ordered. rs3 14:20 ECHOCARD,DOPPLER/COLOR FLOW ordered. EDMS 14:33 ARTERIAL BLOOD GAS Ordered. EDMS 14:34 CPAP INPATIENT ordered. EDMS 15:21 Admission / Observation Status ordered. EDMS 15:33 Chest, 1 view Ordered. EDMS 15:37 Written Provider Order was scanned into [employer] and attached to record. lbd 15:56 ARTERIAL BLOOD GAS Ordered. EDMS 16:42 LACTIC ACID LEVEL, LACTATE Ordered. EDMS 17:45 MRSA SCREEN Ordered. EDMS 03/02 09:00 T-Sheet-- Draft Copy was scanned into [employer] and attached to record. gb 09:00 ECG/EKG was scanned into [employer] and attached to record. gb 12:47 PCR was scanned into [employer] and attached to record. gb Administered Medications: 03/01 13:00 Drug: cefTRIAXone 1 grams Route: IVPB; Infused Over: 30 mins; Site: left antecubital; rs3 13:38 Follow up: IV Status: Completed infusion rs3 13:22 Drug: NS 0.9% 500 ml [sodium chloride 0.9 % injection solution] Route: IV; Rate: bolus; pml Site: left antecubital; 13:38 Drug: azithromycin 500 mg [azithromycin 500 mg intravenous solution] Route: IVPB; rs3 Infused Over: 1 hrs; Site: left antecubital; 15:58 Follow up: IV Status: Completed infusion rs3 14:20 Drug: Furosemide 80 mg [furosemide 10 mg/mL injection solution (8 mL)] Route: IVP; rs3 Site: left antecubital; Signatures: Dispatcher [employer] EDMS Kelle Bell, Textile Conservator Unit lbd Vane Lackey, Reg Reg gb Charly Cerda RN RN dy Roggie, Brian, MD MD br1 Dorothy Durham RN RN rs3 Agnieszka Mora RN RN ttb Sarkis Izaguirre RN RN sa Montondo, Paul, Reg Reg pm4 Liudmila Nunez RN pml The chart was reviewed and I authenticate all verbal orders and agree with the evaluation and treatment provided.Attachments: 12:53 [facility] Payment Agreement pm4 15:37 Written Provider Order lbd 03/02 09:00 T-Sheet-- Draft Copy gb 09:00 ECG/EKG gb Chart Complete MTDD
--- NOTE | 2016-03-05 09:32 | EDDOCDS ---
Nurse's Notes [facility] Name: Mundo Shrestha Age: 85 yrs Sex: Female : 1930 Arrival Date: 03/01/2016 Time: 10:53 Bed 4 Private MD: Manuel Diagnosis: Pneumonia, unspecified organism;Acute pulmonary edema;Non-ST elevation (NSTEMI) myocardial infarction Presentation: 03/01 10:59 Presenting complaint: EMS states: increasing SOB since Friday. Today worsening -- pt ttb refused NRB and nitro in ambulance. 6L O2 applied in route. 12 lead shows Afib per EMS. No pain. Adult Sepsis Screening: The patient does not have new or worsening altered mentation. Patient has a respiratory rate of greater than or equal to 22 (1 point). Suicide/Homicide risk assessment- the patient denies having any suicidal and/or homicidal ideations and does not present with any other emotional, behavioral or mental health complaints. Status: Patient is not a telephone service adviser or dependent. Transition of care: patient was not received from another setting of care. 10:59 Method Of Arrival: Ambulance ttb 10:59 Acuity: CHERRIE Level 2 ttb 11:19 Adult Sepsis Screening: Patient has a qSOFA score of 1- Negative Sepsis Screen. ttb Triage Assessment: 11:19 Respiratory: Onset: The symptoms/episode began/occurred friday, Airway is patent ttb Respiratory effort is even, shallow, Respiratory pattern is regular, symmetrical, tachypnea Breath sounds with rhonchi inspiratory expiratory bilaterally. Reports shortness of breath at rest on exertion the patient has severe shortness of breath Denies pain with respiration, pain with cough. Derm: Skin is normal, circumoral discoloration and dusky fingers, cool to touch, LE's with broken blood vessels/veins noted. 1+ edema noted. Historical: - Allergies: Amiodarone; BARBITURATES; Darvon; Codeine Sulfate; Latex; Niacin; orange dye; surgical scrub; - Home Meds: 1. Vitamin B-6 50 mg Oral cap 200 mg daily (Last dose: 02/29/2016) 2. Vitamin B-12 500 mcg Oral lozg daily (Last dose: 02/29/2016) 3. magnesium oxide 250 mg Oral tab daily (Last dose: 02/29/2016) 4. vit d 1000 daily 5. torsemide 20 mg oral tab 1 tab once daily (Last dose: 02/29/2016 08:00) 6. midodrine 5 mg oral tab bid (Last dose: 02/29/2016 20:00) 7. levothyroxine 50 mcg Oral tab 1 tab once daily (Last dose: 02/29/2016) 8. Pradaxa 75 mg oral cap bid (Last dose: 02/29/2016) 9. atenolol 50 mg Oral tab 2 times per day (Last dose: 02/29/2016) 10. potassium chloride 10 mEq Oral cpER daily when taking the lasix (Last dose: 02/29/2016) 11. calcium carbonate with vit D 630/400 mg Oral daily (Last dose: 02/29/2016) 12. O2 3L nightly (Last dose: 03/01/2016) - PMHx: Atrial Fib; GERD; Hypercholesterolemia; Hypertension; Osteoarthritis; Pulmonary Hypertension; sick sinus syndrome; Varicose Veins; pacer; - PSHx: pacer placement; - Social history: Smoking status: Patient states former smoker of tobacco. No barriers to communication noted, Speaks appropriately for age. - Family history: Not pertinent. - : The pt / caregiver states he / she is on anticoagulants: Pradaxa (Dabigatran) Home medication list is obtained from a discharge med list. - Exposure Risk Screening:: None identified. Screenin:15 Screening information is obtained from the patient. Fall risk: At risk due to age, rs3 apparent cognitive impairment, gait disturbance, immobility. Assistance ADL's: Requires assistance with housework, assistance is provided by Home Health Aides. Abuse/DV Screen: The patient / caregiver reports he/she is: not in a situation that causes fear, pain or injury. Nutritional screening: No deficits noted. Advance Directives: Currently, there is a health care proxy, Chapin Shrestha (). There is an active DNR order but there is no copy available at this time. home support is adequate. Assessment: 11:16 Adult Sepsis Screening: The patient does not have new or worsening altered mentation. ttb Patient has a respiratory rate of greater than or equal to 22 (1 point). Systolic blood pressure is greater than 100. Patient has a qSOFA score of 1- Negative Sepsis Screen. General: Appears well nourished, well groomed, Behavior is appropriate for age, cooperative, pleasant. Pain: Denies pain. Neurological: Level of Consciousness is awake, alert, Speech is normal, Facial symmetry appears normal. Cardiovascular: Rhythm is atrial fibrillation Chest pain is denied. Respiratory: Airway is patent Respiratory effort is even, shallow, Respiratory pattern is regular, symmetrical, tachypnea Breath sounds are coarse Breath sounds with rhonchi crackles bilat Reports shortness of breath at rest on exertion since the patient has severe shortness of breath Denies pain with respiration. GI: Abdomen is noted to have ascites, Bowel sounds present X 4 quads. Denies nausea, vomiting, pain. Derm: Skin is normal. Injury Description: No known injury. 11:20 General: report given to next RNMarianne to continue care. Pt visiting with MD at this ttb time. . 12:17 General: Appears distressed. Pain: Denies pain. Neurological: Level of Consciousness is rs3 awake, alert. Respiratory: Airway is patent Respiratory effort is even, labored, Respiratory pattern is regular, symmetrical, Breath sounds are coarse bilaterally. Breath sounds with rhonchi bilaterally. Reports shortness of breath at rest cough that is productive, bloody sputum. Derm: Skin is dusky, finger tips. 13:53 General: Appears in no apparent distress, denies of acute distress at rest. SOB with rs3 activity, & speaking. denies of chest pain. ordered antibiotic Azithromycin infusing. tolerating well. family at bedside. admitting provider with patient. . 14:30 General: Appears distressed, patient tachypneic, distressed. lung sounds coarse rs3 crackles throughout lung emerson. oxygen sat 84% on 5 L/NC. admitting provider made aware. ordered med Lasix 80 mg IVP given. indwelling Louis 16fr inserted. drains dark yellow urine. respiratory therapist called in. adjusting mode of oxygen delivery . 15:30 General: Appears in no apparent distress, Had triple lumen insertion procedure done by rs3 Dr. Parada. patient tolerated well. Stat ABG drawn. patient on BIpap. tolerating well. titrated her to oxygen 98% . 16:40 General: Appears in no apparent distress, breathes easy. on BiPAP. maintaining oxygen rs3 level high 90s. Respiration 28/mt. lung sounds clear anteriorly. fine crackles at bibasilar. resting comfortable. . Vital Signs: 11:04 BP 115 / 79 RA Sitting (auto/reg); Pulse 125; Resp 34; Temp 96.0(O); Pulse Ox 91% on 3 jrd lpm NC; Weight 59.87 kg (R); Height 5 ft. 4 in. (162.56 cm) (R); Pain 0/10; 11:05 Weight 61.69 kg; Height 62 in. (157.48 cm); ttb 11:34 BP 117 / 77 (auto/); rs3 11:35 Pulse 120 MON; Pulse Ox 94% ; rs3 11:43 Pulse 122 MON; Pulse Ox 94% ; rs3 11:45 BP 122 / 76 (auto/); rs3 11:59 BP 111 / 66 (auto/); rs3 12:00 Pulse 118 MON; Pulse Ox 96% ; rs3 12:14 BP 101 / 59 (auto/); rs3 12:15 Pulse 124 MON; Pulse Ox 96% ; rs3 12:29 BP 104 / 55 (auto/); rs3 12:32 Pulse 122 MON; Pulse Ox 96% ; rs3 12:44 BP 98 / 65 (auto/); rs3 12:45 Pulse 128 MON; Pulse Ox 94% ; rs3 12:59 BP 106 / 67 (auto/); rs3 13:01 Pulse 124 MON; Pulse Ox 94% ; rs3 13:14 BP 132 / 80 (auto/); rs3 13:15 Pulse 124 MON; Pulse Ox 94% ; rs3 13:29 BP 143 / 78 (auto/); rs3 13:30 Pulse 128 MON; Pulse Ox 94% ; rs3 13:44 BP 127 / 65 (auto/); rs3 13:45 Pulse 120 MON; Pulse Ox 92% ; rs3 14:10 BP 111 / 63 (auto/); rs3 14:11 Pulse 124 MON; Pulse Ox 85% ; rs3 14:14 BP 95 / 72 (auto/); rs3 14:15 Pulse 124 MON; Pulse Ox 84% ; rs3 14:29 BP 107 / 79 (auto/); rs3 14:30 Pulse 120 MON; Pulse Ox 84% ; rs3 14:44 BP 103 / 73 (auto/); rs3 14:44 Pulse 128 MON; Pulse Ox 88% ; rs3 14:59 BP 103 / 77 (auto/); rs3 14:59 Pulse 132 MON; Pulse Ox 90% ; rs3 15:14 BP 99 / 66 (auto/); rs3 15:15 Pulse 136 MON; Pulse Ox 94% ; rs3 15:29 BP 91 / 59 (auto/); rs3 15:31 Pulse 136 MON; Pulse Ox 93% ; rs3 15:45 BP 102 / 59 (auto/); rs3 15:49 Pulse 132 MON; Pulse Ox 95% ; rs3 15:59 BP 98 / 57 (auto/); rs3 16:00 Pulse 130 MON; Pulse Ox 95% ; rs3 16:14 BP 88 / 54 (auto/); rs3 16:15 Pulse 116 MON; Pulse Ox 96% ; rs3 16:29 BP 90 / 55 (auto/); rs3 16:30 Pulse 120 MON; Pulse Ox 97% ; rs3 16:44 BP 95 / 58 (auto/); rs3 16:45 Pulse 128 MON; Pulse Ox 98% ; rs3 16:59 BP 91 / 63 (auto/); rs3 17:00 Pulse 126 MON; Pulse Ox 95% ; rs3 17:11 Pulse 128 MON; Resp 28; Pulse Ox 94% ; rs3 17:23 Temp 98.5(TE); rn1 17:26 BP 91 / 63; Pulse 124 MON; Resp 28; Temp 98.5(TE); Pulse Ox 93% on BiPAP; Pain 0/10; rs3 11:05 Body Mass Index 24.87 (61.69 kg, 157.48 cm) ttb Vitals: 11:05 Log In Time N/A - ambulance arrival. ttb ED Course: 10:55 Patient visited by Kelle Bell, Health Clinician. lbd 10:55 Adams is Private Physician. lbd 10:55 Patient moved to Waiting lbd 10:55 Patient moved to 4 lbd 11:03 Triage Initiated ttb 11:05 Patient visited by Joel Gutierrez PCA. jrd 11:10 Erich Rose MD is Attending Physician. br1 11:14 Patient visited by Agnieskza Mora RN. ttb 11:16 BNP Sent. ttb 11:16 Basic Metabolic Profile Sent. ttb 11:16 CBC with Diff Sent. ttb 11:16 Cardiac Injury Profile Sent. ttb 11:16 Troponin Sent. ttb 11:18 EKG done. (by ED staff). Reviewed by Erich Rose MD. rn1 11:19 Patient visited by Erich Rose MD. br1 11:21 Maintain field IV. Dressing intact. Good blood return noted. Site clean & dry. Gauge & ttb site: 20G LAC. Labs drawn. (by ED staff). Labs/Blood culture drawn. 11:33 -Arterial Blood Gas Sent. rs5 11:38 Dorothy Durham,VIVIAN is Primary Nurse. rs3 11:54 Patient visited by Dorothy Durham RN. rs3 12:30 Patient visited by Dorothy Durham RN. rs3 12:30 BLOOD CULTURES Sent. rs3 12:53 [facility] Payment Agreement was scanned into [employer] and attached to record. pm4 12:54 Melvin Buckner DO is Hospitalizing Provider. br1 13:18 Chest, 2 View (pa\E\lat) Returned. EDMS 14:45 Assist provider with central line placement of triple lumen in right internal jugular. rs3 Set up central line tray. Line placed by Camryn Parada Placement verified by CXR, blood return, Dressed with 4X4s, Tape, Tegaderm, Patient tolerated well. Louis cath inserted 16 Fr. Balloon inflated. To gravity drainage. Patient tolerated well. 15:37 Written Provider Order was scanned into [employer] and attached to record. lbd 16:16 Chest, 1 view Returned. EDMS 17:08 Patient visited by Dorothy Durham RN. rs3 17:27 The patient / caregiver is instructed regarding the plan of care and ED course. rs3 03/02 09:00 T-Sheet-- Draft Copy was scanned into [employer] and attached to record. gb 09:00 ECG/EKG was scanned into [employer] and attached to record. gb 12:47 PCR was scanned into [employer] and attached to record. gb Administered Medications: 03/01 13:00 Drug: cefTRIAXone 1 grams Route: IVPB; Infused Over: 30 mins; Site: left antecubital; rs3 13:38 Follow up: IV Status: Completed infusion rs3 13:22 Drug: NS 0.9% 500 ml [sodium chloride 0.9 % injection solution] Route: IV; Rate: bolus; pml Site: left antecubital; 13:38 Drug: azithromycin 500 mg [azithromycin 500 mg intravenous solution] Route: IVPB; rs3 Infused Over: 1 hrs; Site: left antecubital; 15:58 Follow up: IV Status: Completed infusion rs3 14:20 Drug: Furosemide 80 mg [furosemide 10 mg/mL injection solution (8 mL)] Route: IVP; rs3 Site: left antecubital; Output: 17:32 Urine: 200.00ml (Louis); Total: 200.00ml. rs3 RT: 11:34 ABG's drawn from right brachial artery pressure held for 5 minutes no bleeding noted rs5 pressure bandage applied specimen sent pt. tolerated well. Order Results: Lab Order: Basic Metabolic Profile; SPEC'M 03/01/16 11:10 Test: GLUCOSE, FASTING; Value: 101; Range: 83-110; Units: MG/DL; Status: F Test: BLOOD UREA NITROGEN; Value: 85; Range: 7-18; Abnormal: Above high normal; Units: MG/DL; Status: F Test: CREATININE FOR GFR; Value: 1.89; Range: 0.55-1.02; Abnormal: Above high normal; Units: MG/DL; Status: F Test: GLOMERULAR FILTRATION RATE; Value: 26.8; Range: >32; Abnormal: Below low normal; Status: F Test: SODIUM LEVEL; Value: 134; Range: 136-145; Abnormal: Below low normal; Units: MEQ/L; Status: F Test: POTASSIUM SERUM; Value: 4.9; Range: 3.5-5.1; Units: MEQ/L; Status: F Test: CHLORIDE LEVEL; Value: 98; Range: 98-107; Units: MEQ/L; Status: F Test: CARBON DIOXIDE LEVEL; Value: 26; Range: 21-32; Units: MEQ/L; Status: F Test: ANION GAP; Value: 10; Range: 8-16; Units: MEQ/L; Status: F Test: CALCIUM LEVEL; Value: 9.9; Range: 8.8-10.2; Units: MG/DL; Status: F Test Note: ; Units are mL/min/1.73 m2 Chronic Kidney Disease Staging per NKF: Stage I & II GFR >=60 Normal to Mildly Decreased Stage III GFR 30-59 Moderately Decreased Stage IV GFR 15-29 Severely Decreased Stage V GFR <15 Very Little GFR Left ESRD GFR <15 on ELECTROPLATING WORKER Lab Order: CBC with Diff; SPEC'M 03/01/16 11:10 Test: WHITE BLOOD COUNT; Value: 29.8; Range: 4.0-10.0; Abnormal: Above high normal; Units: K/mm3; Status: F Test: RED BLOOD COUNT; Value: 4.41; Range: 4.00-5.40; Units: M/mm3; Status: F Test: HEMOGLOBIN; Value: 12.6; Range: 12.0-16.0; Units: g/dl; Status: F Test: HEMATOCRIT; Value: 40.8; Range: 36.0-47.0; Units: %; Status: F Test: MEAN CORPUSCULAR VOLUME; Value: 92.7; Range: 80.0-96.0; Units: fl; Status: F Test: MEAN CORPUSCULAR HEMOGLOBIN; Value: 28.6; Range: 27.0-33.0; Units: pg; Status: F Test: MEAN CORPUSCULAR HGB CONC; Value: 30.9; Range: 32.0-36.5; Abnormal: Below low normal; Units: g/dl; Status: F Test: RED CELL DISTRIBUTION WIDTH; Value: 17.3; Range: 11.5-14.5; Abnormal: Above high normal; Units: %; Status: F Test: PLATELET COUNT, AUTOMATED; Value: 644; Range: 150-450; Abnormal: Above high normal; Units: k/mm3; Status: F Test: NEUTROPHILS %; Value: 84.2; Range: 36.0-66.0; Abnormal: Above high normal; Units: %; Status: F Test: LYMPH %; Value: 9.5; Range: 24.0-44.0; Abnormal: Below low normal; Units: %; Status: F Test: MONO %; Value: 3.4; Range: 0.0-5.0; Units: %; Status: F Test: EOS %; Value: 0.5; Range: 0.0-3.0; Units: %; Status: F Test: BASO %; Value: 0.7; Range: 0.0-1.0; Units: %; Status: F Test: LARGE UNSTAINED CELL %; Value: 1.7; Range: 0.0-4.0; Units: %; Status: F Test: NEUTROPHILS #; Value: 25.1; Range: 1.8-7.7; Abnormal: Above high normal; Units: K/mm3; Status: F Test: LYMPH #; Value: 3.3; Range: 1.5-4.5; Units: K/mm3; Status: F Test: MONO #; Value: 1.0; Range: 0.0-0.8; Abnormal: Above high normal; Units: K/mm3; Status: F Test: EOS #; Value: 0.2; Range: 0.0-0.50; Units: K/mm3; Status: F Test: BASO #; Value: 0.2; Range: 0.0-0.2; Units: K/mm3; Status: F Test: LARGE UNSTAINED CELL #; Value: 0.5; Range: 0.0-0.4; Abnormal: Above high normal; Units: K/mm3; Status: F Lab Order: Cardiac Injury Profile; [facility]' 03/01/16 11:10 Test: CPK CREATINE PHOSPHOKINASE; Value: 34; Range: 26-192; Units: U/L; Status: F Test: CK-MB VALUE MASS; Value: 1.8; Range: 0.0-3.6; Units: NG/ML; Status: F Test: MB/CK RELATIVE INDEX; Value: 5.29; Range: < OR =4; Abnormal: Above high normal; Status: F Test Note: ; DIAGNOSIS CRITERIA MMB ng/ml Relative Index (RI) NON-AMI < or = 5 N/A BACK ZONE > 5 < or = 4 AMI > 5 > 4 Lab Order: Troponin; SPEC'M 03/01/16 11:10 Test: TROPONIN I; Value: 1.60; Range: < 0.10; Abnormal: Above upper panic limits; Units: NG/ML; Status: F Test Note: ; Troponin I Reference Interval for fos4X LOCI: 99th Percentile= 0.00-0.045 ng/ml Risk Stratification: <= 0.10 ng/ml Decreased Risk for Adverse Clinical Events. 0.10-1.50 ng/ml Increased Risk for Adverse Clinical Events. Evaluation of additional criterion and/or repeat testing in 2-6 hours is suggested to rule out myocardial damage. >= 1.50 ng/ml Indicative of Myocardial Injury. Lab Order: BNP; SPEC'M 03/01/16 11:10 Test: BRAIN NATRIURETIC PEPTIDE; Value: 1550; Range: <100; Abnormal: Above high normal; Units: PG/ML; Status: F Lab Order: Lactic Acid (Back tube on ice); SPEC'M 03/01/16 11:07 Test: LACTIC ACID LEVEL, LACTATE; Value: 2.2; Range: 0.4-2.0; Abnormal: Above upper panic limits; Units: MMOL/L; Status: F Lab Order: -Arterial Blood Gas; SPEC'03/01/16 11:25 Test: ABG pH (ARTERIAL); Value: 7.437; Range: 7.350-7.450; Units: UNITS; Status: F Test: ABG PARTIAL PRESSURE CO2; Value: 34.4; Range: 35.0-45.0; Abnormal: Below low normal; Units: mmHg; Status: F Test: ABG PARTIAL PRESSURE O2; Value: 75.8; Range: 75.0-100.0; Units: mmHg; Status: F Test: ABG TOTAL CO2; Value: 23.7; Range: 23.0-31.0; Units: MEQ/L; Status: F Test: ABG HCO3; Value: 22.7; Range: 22.0-26.0; Units: MEQ/L; Status: F Test: ABG BASE EXCESS; Value: -0.9; Range: -2.0-2.0; Status: F Test: ABG STANDARD HCO3; Value: 23.7; Range: 22.0-26.0; Units: MEQ/L; Status: F Test: ABG O2 SATURATION; Value: 95.9; Range: 95.0-99.0; Units: %; Status: F Test: ABG DEVICE; Value: NASAL MAISHA; Status: F Lab Order: INFLUENZA A&B RAPID ANTIGEN; SPEC'M 03/01/16 16:01 Test: INFLUENZA A RAPID SCR by ICA; Value: INFLUENZA A RESULTS NEGATIVE; Status: F Test: INFLUENZA A RAPID SCR by ICA; Value: Comments:; Status: F Test: INFLUENZA B RAPID SCR by ICA; Value: INFLUENZA B RESULTS NEGATIVE; Status: F Test Note: ; The Influenza test is a direct rapid immunoassay for the qualitative detection of Influenza viral antigen. Cell culture (Viral Culture) testing should be considered to confirm NEGATIVE results and to assist in detecting other viruses that can provide similar clinical symptoms. Please contact the lab within 24 hours ([phone]) if confirmatory testing is desired. Lab Order: ARTERIAL BLOOD GAS; SPEC'M 03/01/16 14:48 Test: ABG pH (ARTERIAL); Value: 7.164; Range: 7.350-7.450; Abnormal: Critical Low; Units: UNITS; Status: F Test: ABG PARTIAL PRESSURE CO2; Value: 56.3; Range: 35.0-45.0; Abnormal: Above high normal; Units: mmHg; Status: F Test: ABG PARTIAL PRESSURE O2; Value: 85.9; Range: 75.0-100.0; Units: mmHg; Status: F Test: ABG TOTAL CO2; Value: 21.5; Range: 23.0-31.0; Abnormal: Below low normal; Units: MEQ/L; Status: F Test: ABG HCO3; Value: 19.8; Range: 22.0-26.0; Abnormal: Below low normal; Units: MEQ/L; Status: F Test: ABG BASE EXCESS; Value: -9.2; Range: -2.0-2.0; Abnormal: Below low normal; Status: F Test: ABG STANDARD HCO3; Value: 17.1; Range: 22.0-26.0; Abnormal: Below low normal; Units: MEQ/L; Status: F Test: ABG O2 SATURATION; Value: 94.4; Range: 95.0-99.0; Abnormal: Below low normal; Units: %; Status: F Lab Order: ARTERIAL BLOOD GAS; SPEC'M 03/01/16 17:34 Test: ABG pH (ARTERIAL); Value: 7.349; Range: 7.350-7.450; Abnormal: Below low normal; Units: UNITS; Status: F Test: ABG PARTIAL PRESSURE CO2; Value: 41.3; Range: 35.0-45.0; Units: mmHg; Status: F Test: ABG PARTIAL PRESSURE O2; Value: 79.2; Range: 75.0-100.0; Units: mmHg; Status: F Test: ABG TOTAL CO2; Value: 23.5; Range: 23.0-31.0; Units: MEQ/L; Status: F Test: ABG HCO3; Value: 22.2; Range: 22.0-26.0; Units: MEQ/L; Status: F Test: ABG BASE EXCESS; Value: -3.2; Range: -2.0-2.0; Abnormal: Below low normal; Status: F Test: ABG STANDARD HCO3; Value: 21.8; Range: 22.0-26.0; Abnormal: Below low normal; Units: MEQ/L; Status: F Test: ABG O2 SATURATION; Value: 95.4; Range: 95.0-99.0; Units: %; Status: F Lab Order: LACTIC ACID LEVEL, LACTATE; SPEC'M 03/01/16 16:55 Test: LACTIC ACID LEVEL, LACTATE; Value: 2.1; Range: 0.4-2.0; Abnormal: Above high normal; Units: MMOL/L; Status: F Radiology Order: Chest, 2 View (pa\E\lat) Test: Chest, 2 View (pa\E\lat) REASON FOR EXAMINATION: Shortness of Breath; Semi upright AP portable chest, 03/01/2016; ; Indication: Shortness of breath; ; Comparison: Portable chest 02/09/2015, CT chest 08/13/2013; ; Findings: The cardiac silhouette is significantly enlarged with right atrial and; ventricular enlargement. 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 There is interstitial pulmonary; edema; ; Impression:; ; 1. Significant/large cardiomegaly with right atrial enlargement. Right atrial; and ventricular pacer leads are unchanged.; 2. Interstitial pulmonary edema; 3. Large posterior segment right upper lobe mass versus infiltrate. Recommend; correlation with CT chest with IV contrast; ; ; Signed by; Gwen Loyd MD 03/01/2016 12:30 P; Radiology Order: Chest, 1 view Test: Chest, 1 view REASON FOR EXAMINATION: POST CENTRAL LINE; CHEST, ONE VIEW:; ; HISTORY: Status-post central line placement.; ; COMPARISON: 03/01/2016; ; The technique utilized in obtaining the radiograph has magnified the cardiac; silhouette and accentuated the interstitial markings.; ; A right sided internal jugular central venous catheter is now present. The tip of; which is in the region of the superior vena cava. Patchy opacities are again seen; throughout the right lung status quo. There are no additional abnormal opacities.; Cardiomediastinal silhouette is unchanged. Dual chamber bipolar pace maker status; quo.; ; IMPRESSION:; ; Central line placement as described above with other findings.; ; ; Signed by; Marcio Watt DO 03/01/2016 04:40 P; Outcome: 12:19 The following High Risk Discharge criteria are identified:. rs3 12:54 Decision to Hospitalize by Provider. br1 17:26 Discharge Assessment: patient administered narcotics - no. Condition: stable. No rs3 special radiology studies were completed. Admission hand-off: Report called to unit staff. Property :Personal belongings accompany Pt. 17:32 Patient left the ED. rs3 Signatures: Dispatcher [employer] EDMS Kelle Bell, Health Clinician Unit lbd Vane Lackey, Reg Reg gb Erich Rose MD MD br1 Dorothy DurhamRN RN rs3 Raymond Delgado,RT RT rs5 Liudmila Nunez,RN RN Agnieszka Pavon RN RN ttb Joel Gutierrez, WAREHOUSE ANALYST WAREHOUSE ANALYST Zechariah Dunn rn1 Saul Sheldon, Reg Reg pm4 Corrections: (The following items were deleted from the chart) 17:13 17:11 Pulse 128bpm; Monitor; Pulse Ox 94%; rs3 rs3 Chart Complete MTDD
[2016-03-05 12:00] VITALS: BP 119/76
[2016-03-05] MEDS: cefTRIAXone SOD 2 GM in D5W MINI-BAG PLUS 50 ML IV SCH (12:28)
--- NOTE | 2016-03-05 15:45 | IPNPDOC ---
Text Note Date of Service The patient was seen on 03/05/16 at 15:35. NOTE Subjective: Patient states shes has some mild dyspnea, which is improving. No chest pain or palpitations. Objective: Vitals: (see below) General: No acute distress, laying comfortably in bed. Cachectic HEENT: Moist mucous membranes. Neck: No JVD or lymphadenopathy Cardiac: Irregularly irregular, tachycardic. Pulm: Diminished breath sounds and crackles b/l bases. No wheezing, rhonchi Abd: NT/ND + BS. Ext: No edema or cyanosis Labs (see below) Images: CXR 03/02/16 Impression:Right upper lobe and right middle lobe consolidation consistent with pneumonia unchanged. Cardiomegaly with pacemaker. Assessment/Plan 1. Status post acute hypercapnic and hypoxic respiratory failure secondary to severe sepsis from community-acquired pneumonia. It appears the patient has strep pneumonia bacteremia with repeat cultures negative. Patient is on Rocephin. Vitals are relatively stable. Her tachycardia is improving with the treatment of her sepsis. Status post azithromycin. One blood culture from was positive for gram-positive rods however this was likely contaminated repeat blood cultures have been negative. 2. Elevated troponin- likely secondary to demand ischemia from her severe sepsis. I have discussed this with Dr. Jarvis who recommends outpatient follow- up. He will schedule her for an outpatient stress test once she is stable for discharge. EKG did have some mild ST changes however these were during her episodes of atrial fibrillation with RVR. The patient denies any chest pain/ palpitations. 3. Right-sided heart failure- secondary to pulmonary hypertension, following up with pulmonary outpatient.. Patient does have hepatic congestion with varicose veins as well. Her dose of torsemide daily was held given her state of severe sepsis. Once her vitals remain stable we will restart her diuretic at a low dose. 4. Atrial Fibrillation with RVR. Uncontrolled in the setting of sepsis. Her atenolol was restarted yesterday at a low dose. Continue pradaxa. I did speak with Dr. Jarvis regarding her rate control with recommendations to use digoxin as needed in the short-term with the ultimate plan to discontinue it altogether prior to discharge. 5. AK- secondary to #1. Baseline 1.1, which is where the patient is at right now. Creatinine is significantly improved since hospitalization. 6. Normocytic anemia- no bleeding noted. Stable. Continue to monitor hemoglobin. 7. Hypothyroidism- continue Synthroid 8. SSS- status post PPM 9. Hyperlipidemia 10. Osteoarthritis- continue Tylenol when necessary 11. GERD- continue PPI DVT prophy: On pradaxa. VS,Fishbone, I+O VS, Fishbone, I+O Laboratory Tests 03/05/16 05:20 Anion Gap 9, Red Blood Count 3.91 L, Mean Corpuscular Volume 93.6, Mean Corpuscular Hemoglobin 28.6, Mean Corpuscular Hemoglobin Concent 30.5 L, Red Cell Distribution Width 16.4 H, Neutrophils (%) (Auto) 81.6 H, Lymphocytes (%) ( Auto) 7.0 L, Monocytes (%) (Auto) 6.9 H, Eosinophils (%) (Auto) 1.5, Basophils ( %) (Auto) 0.4, Neutrophils # (Auto) 12.7 H, Lymphocytes # (Auto) 1.1 L, Monocytes # (Auto) 1.1 H, Eosinophils # (Auto) 0.2, Basophils # (Auto) 0.1 Vital Signs Date Time Temp Pulse Resp B/P Pulse Ox O2 Delivery O2 Flow Rate FiO2 03/05/16 12:00 Nasal Cannula 2.0 03/05/16 12:00 96.8 100 20 119/76 98 03/01/16 21:00 50 I&O- Last 24 Hours up to 6 AM 03/05/16 06:00 Intake Total 760 ml Output Total 1575 ml Balance -815 ml MONICA BERNAL MD Mar 05, 2016 15:45
[2016-03-05 16:00] VITALS: BP 120/58
[2016-03-05 20:00] VITALS: BP 114/60
[2016-03-06] VITALS: BP 115/67
[2016-03-06 04:00] VITALS: BP 123/62
[2016-03-06] MEDS: SODIUM CHLORIDE 0.9% INJ 10 ML SYR IV SCH ×3 (04:38→20:52)
[2016-03-06] MEDS: LEVOTHYROXINE 0.05 MG TAB (50 MCG) PO SCH (04:38)
[2016-03-06 05:40] LABS: BASO % 0.4 % (0.0-1.0); EOS # 0.3 K/mm3 (0.0-0.50); EOS % 2.1 % (0.0-3.0); LARGE UNSTAINED CELL # 0.3 K/mm3 (0.0-0.4); LARGE UNSTAINED CELL % 2.1 % (0.0-4.0); LYMPH # 1.1 K/mm3 (1.5-4.5); LYMPH % 7.1 % (24.0-44.0); MEAN CORPUSCULAR HEMOGLOBIN 28.6 pg (27.0-33.0); MEAN CORPUSCULAR HGB CONC 30.3 g/dl (32.0-36.5); MEAN CORPUSCULAR VOLUME 94.4 fl (80.0-96.0); MONO # 1.2 K/mm3 (0.0-0.8); MONO % 7.5 % (0.0-5.0); NEUTROPHILS # 12.3 K/mm3 (1.8-7.7); NEUTROPHILS % 80.8 % (36.0-66.0); PLATELET COUNT, AUTOMATED 619 k/mm3 (150-450); RED CELL DISTRIBUTION WIDTH 16.4 % (11.5-14.5); WHITE BLOOD COUNT 15.3 K/mm3 (4.0-10.0)
[2016-03-06 06:03] LABS: ALBUMIN 2.3 GM/DL (3.2-5.2); ANION GAP 10 MEQ/L (8-16); BLOOD UREA NITROGEN 50 MG/DL (7-18); CALCIUM LEVEL 8.8 MG/DL (8.8-10.2); CARBON DIOXIDE LEVEL 26 MEQ/L (21-32); CHLORIDE LEVEL 106 MEQ/L (98-107); CREATININE FOR GFR 0.89 MG/DL (0.55-1.02); GLOMERULAR FILTRATION RATE > 60.0 (>32); GLUCOSE, FASTING 97 MG/DL (83-110); MAGNESIUM LEVEL 2.6 MG/DL (1.8-2.4); PHOSPHORUS LEVEL 2.7 MG/DL (2.5-4.9); SODIUM LEVEL 142 MEQ/L (136-145)
[2016-03-06 07:30] VITALS: BP 116/69
[2016-03-06] MEDS: MIDODRINE 5 MG TAB PO SCH ×2 (09:42→15:27)
[2016-03-06] MEDS: VITAMIN D 1,000 INTERNATIONAL UNITS TABLET PO SCH (09:42)
[2016-03-06] MEDS: DOCUSATE SODIUM 100 MG CAP PO SCH ×2 (09:43→20:52)
[2016-03-06] MEDS: PANTOPRAZOLE 40MG TAB (PROTONIX) PO SCH (09:43)
[2016-03-06] MEDS: PYRIDOXINE 50 MG TAB PO SCH (09:43)
[2016-03-06] MEDS: POTASSIUM CHLORIDE 10 MEQ SR TABLET PO SCH (09:43)
[2016-03-06] MEDS: CYANOCOBALAMIN 500 MCG TAB PO SCH (09:43)
[2016-03-06] MEDS: CALCIUM/VITAMIN D 500 MG TAB PO SCH (09:43)
[2016-03-06] MEDS: ATENOLOL 12.5MG PER 1/2 TABLET PO SCH ×2 (09:45→20:52)
[2016-03-06] MEDS: DABIGATRAN ETEXILATE 75 MG CAP (PRADAXA) PO SCH ×2 (11:20→20:52)
[2016-03-06] MEDS: cefTRIAXone SOD 2 GM in D5W MINI-BAG PLUS 50 ML IV SCH (11:32)
[2016-03-06 12:00] VITALS: BP 113/65
[2016-03-06] MEDS ORDERED: TORSEMIDE 20 MG TAB PO ONE (14:30)
[2016-03-06 14:31] LABS: ORGANISM ID Not indicated. (.); SPECIMEN SOURCE Urine (.)
[2016-03-06 16:00] VITALS: BP 120/68
--- NOTE | 2016-03-06 16:44 | IPNPDOC ---
Text Note Date of Service The patient was seen on 03/06/16 at 16:42. NOTE Subjective:Pt denies SOB/chest pain/palpitations. Objective: Vitals: (see below) General: No acute distress, laying comfortably in bed. Cachectic HEENT: Moist mucous membranes. Neck: No JVD or lymphadenopathy Cardiac: Irregularly irregular, tachycardic. Pulm: Diminished breath sounds and crackles b/l bases. No wheezing, rhonchi Abd: NT/ND + BS. Ext: No edema or cyanosis Labs (see below) Images: CXR 03/02/16 Impression:Right upper lobe and right middle lobe consolidation consistent with pneumonia unchanged. Cardiomegaly with pacemaker. Assessment/Plan 1. Status post acute hypercapnic and hypoxic respiratory failure secondary to severe sepsis from community-acquired pneumonia. It appears the patient has strep pneumonia bacteremia with repeat cultures negative. Patient is on Rocephin. Vitals are relatively stable. Her tachycardia is improving with the treatment of her sepsis. Status post azithromycin. 1 bld cx with gram + rods, likely contaminated. 2. Elevated troponin- likely secondary to demand ischemia from her severe sepsis. I have discussed this with Dr. Jarvis who recommends outpatient follow- up. He will schedule her for an outpatient stress test once she is stable for discharge. EKG did have some mild ST changes however these were during her episodes of atrial fibrillation with RVR. The patient denies any chest pain/ palpitations. 3. Right-sided heart failure- secondary to pulmonary hypertension, following up with pulmonary outpatient.. Patient does have hepatic congestion with varicose veins as well. Her dose of torsemide daily was held given her state of severe sepsis. Restart home dose today. 4. Atrial Fibrillation with RVR. Uncontrolled in the setting of sepsis. Her atenolol was restarted yesterday at a low dose. Continue pradaxa. I did speak with Dr. Jarvis regarding her rate control with recommendations to use digoxin as needed in the short-term with the ultimate plan to discontinue it altogether prior to discharge. 5. AK- secondary to #1. Baseline 1.1, which is where the patient is at right now. Creatinine is significantly improved since hospitalization. 6. Normocytic anemia- no bleeding noted. Stable. Continue to monitor hemoglobin. 7. Hypothyroidism- continue Synthroid 8. SSS- status post PPM 9. Hyperlipidemia 10. Osteoarthritis- continue Tylenol when necessary 11. GERD- continue PPI DVT prophy: On pradaxa. VS,Fishbone, I+O VS, Fishbone, I+O Laboratory Tests 03/06/16 04:42 Anion Gap 10, Red Blood Count 3.99 L, Mean Corpuscular Volume 94.4, Mean Corpuscular Hemoglobin 28.6, Mean Corpuscular Hemoglobin Concent 30.3 L, Red Cell Distribution Width 16.4 H, Neutrophils (%) (Auto) 80.8 H, Lymphocytes (%) ( Auto) 7.1 L, Monocytes (%) (Auto) 7.5 H, Eosinophils (%) (Auto) 2.1, Basophils ( %) (Auto) 0.4, Neutrophils # (Auto) 12.3 H, Lymphocytes # (Auto) 1.1 L, Monocytes # (Auto) 1.2 H, Eosinophils # (Auto) 0.3, Basophils # (Auto) 0.0 Vital Signs Date Time Temp Pulse Resp B/P Pulse Ox O2 Delivery O2 Flow Rate FiO2 03/06/16 15:45 Nasal Cannula 2.0 03/06/16 12:00 97.8 93 22 113/65 96 03/01/16 21:00 50 I&O- Last 24 Hours up to 6 AM 03/06/16 06:00 Intake Total 1200 ml Output Total 1650 ml Balance -450 ml MONICA BERNAL MD Mar 06, 2016 16:44
[2016-03-06 20:00] VITALS: BP 140/72
[2016-03-06] MEDS: MIRALAX *UNIT DOSE* 17GM PACKET PO SCH (20:51)
[2016-03-06] MEDS: MOM 30ML SUSPENSION UDC PO SCH (20:51)
[2016-03-07 00:35] VITALS: BP 124/66
[2016-03-07] MEDS: SODIUM CHLORIDE 0.9% INJ 10 ML SYR IV SCH ×3 (05:18→21:11)
[2016-03-07] MEDS: LEVOTHYROXINE 0.05 MG TAB (50 MCG) PO SCH (05:18)
[2016-03-07 05:24] VITALS: BP 120/70
[2016-03-07 05:34] LABS: BASO # 0.1 K/mm3 (0.0-0.2); BASO % 0.5 % (0.0-1.0); EOS # 0.4 K/mm3 (0.0-0.50); EOS % 3.5 % (0.0-3.0); LARGE UNSTAINED CELL # 0.2 K/mm3 (0.0-0.4); LARGE UNSTAINED CELL % 1.8 % (0.0-4.0); LYMPH % 7.6 % (24.0-44.0); MEAN CORPUSCULAR HGB CONC 30.9 g/dl (32.0-36.5); MEAN CORPUSCULAR VOLUME 93.9 fl (80.0-96.0); MONO % 7.5 % (0.0-5.0); NEUTROPHILS # 10.4 K/mm3 (1.8-7.7); NEUTROPHILS % 79.1 % (36.0-66.0); PLATELET COUNT, AUTOMATED 638 k/mm3 (150-450); RED CELL DISTRIBUTION WIDTH 16.4 % (11.5-14.5); WHITE BLOOD COUNT 13.1 K/mm3 (4.0-10.0)
[2016-03-07 05:50] LABS: ALBUMIN 2.1 GM/DL (3.2-5.2); ANION GAP 5 MEQ/L (8-16); BLOOD UREA NITROGEN 45 MG/DL (7-18); CALCIUM LEVEL 8.9 MG/DL (8.8-10.2); CARBON DIOXIDE LEVEL 29 MEQ/L (21-32); CHLORIDE LEVEL 107 MEQ/L (98-107); CREATININE FOR GFR 0.92 MG/DL (0.55-1.02); GLOMERULAR FILTRATION RATE > 60.0 (>32); GLUCOSE, FASTING 105 MG/DL (83-110); MAGNESIUM LEVEL 2.3 MG/DL (1.8-2.4); PHOSPHORUS LEVEL 2.3 MG/DL (2.5-4.9); POTASSIUM SERUM 4.3 MEQ/L (3.5-5.1); SODIUM LEVEL 141 MEQ/L (136-145)
[2016-03-07 07:30] VITALS: BP 116/59
[2016-03-07] MEDS: DABIGATRAN ETEXILATE 75 MG CAP (PRADAXA) PO SCH ×2 (09:31→21:10)
[2016-03-07] MEDS: ATENOLOL 12.5MG PER 1/2 TABLET PO SCH ×2 (09:31→21:11)
[2016-03-07] MEDS: CALCIUM/VITAMIN D 500 MG TAB PO SCH (09:31)
[2016-03-07] MEDS: PYRIDOXINE 50 MG TAB PO SCH (09:32)
[2016-03-07] MEDS: PANTOPRAZOLE 40MG TAB (PROTONIX) PO SCH (09:32)
[2016-03-07] MEDS: DOCUSATE SODIUM 100 MG CAP PO SCH ×2 (09:32→21:00)
[2016-03-07] MEDS: VITAMIN D 1,000 INTERNATIONAL UNITS TABLET PO SCH (09:32)
[2016-03-07] MEDS: CYANOCOBALAMIN 500 MCG TAB PO SCH (09:32)
[2016-03-07] MEDS: MIDODRINE 5 MG TAB PO SCH ×2 (09:32→16:31)
[2016-03-07] MEDS: TORSEMIDE 20 MG TAB PO SCH (09:32)
[2016-03-07] MEDS: MIRALAX *UNIT DOSE* 17GM PACKET PO SCH ×2 (09:33→20:07)
[2016-03-07] MEDS: POTASSIUM CHLORIDE 10 MEQ SR TABLET PO SCH (09:33)
[2016-03-07] MEDS: MOM 30ML SUSPENSION UDC PO SCH ×2 (09:33→20:07)
[2016-03-07 12:00] VITALS: BP 122/65
[2016-03-07] MEDS: cefTRIAXone SOD 2 GM in D5W MINI-BAG PLUS 50 ML IV SCH (12:36)
[2016-03-07 16:00] VITALS: BP 112/62
--- NOTE | 2016-03-07 16:32 | IPNPDOC ---
Text Note Date of Service The patient was seen on 03/07/16 at 16:31. NOTE Subjective: Patient states she's feeling well. Denies any current complaints. Objective: Vitals: (see below) General: No acute distress, laying comfortably in bed. Cachectic HEENT: Moist mucous membranes. Neck: No JVD or lymphadenopathy Cardiac: Irregularly irregular, tachycardic. Pulm: Diminished breath sounds and crackles b/l bases. No wheezing, rhonchi Abd: NT/ND + BS. Ext: No edema or cyanosis Labs (see below) Images: CXR 03/02/16 Impression:Right upper lobe and right middle lobe consolidation consistent with pneumonia unchanged. Cardiomegaly with pacemaker. Assessment/Plan 1. Status post acute hypercapnic and hypoxic respiratory failure secondary to severe sepsis from community-acquired pneumonia. It appears the patient has strep pneumonia bacteremia with repeat cultures negative. Patient is on Rocephin. Vitals are relatively stable. Her tachycardia is improving with the treatment of her sepsis. Status post azithromycin. 1 bld cx with gram + rods, likely contaminated. 2. Elevated troponin- likely secondary to demand ischemia from her severe sepsis. I have discussed this with Dr. Jarvis who recommends outpatient follow- up. He will schedule her for an outpatient stress test once she is stable for discharge. EKG did have some mild ST changes however these were during her episodes of atrial fibrillation with RVR. The patient denies any chest pain/ palpitations. 3. Right-sided heart failure- secondary to pulmonary hypertension, following up with pulmonary outpatient.. Patient does have hepatic congestion with varicose veins as well. Her dose of torsemide daily was held given her state of severe sepsis. Restart home dose today. 4. Atrial Fibrillation with RVR. Uncontrolled in the setting of sepsis. Her atenolol was restarted yesterday at a low dose. Continue pradaxa. I did speak with Dr. Jarvis regarding her rate control with recommendations to use digoxin as needed in the short-term with the ultimate plan to discontinue it altogether prior to discharge. 5. AK- secondary to #1. Baseline 1.1, which is where the patient is at right now. Creatinine is significantly improved since hospitalization. 6. Normocytic anemia- no bleeding noted. Stable. Continue to monitor hemoglobin. 7. Hypothyroidism- continue Synthroid 8. SSS- status post PPM 9. Hyperlipidemia 10. Osteoarthritis- continue Tylenol when necessary 11. GERD- continue PPI DVT prophy: On pradaxa. Plan to discharge in the next 24-48 hours if continues to clinically improve. Cleared by physical therapy. VS,Erica, I+O VS, Erica, I+O Laboratory Tests 03/07/16 05:20 Anion Gap 5 L, Red Blood Count 3.87 L, Mean Corpuscular Volume 93.9, Mean Corpuscular Hemoglobin 29.0, Mean Corpuscular Hemoglobin Concent 30.9 L, Red Cell Distribution Width 16.4 H, Neutrophils (%) (Auto) 79.1 H, Lymphocytes (%) ( Auto) 7.6 L, Monocytes (%) (Auto) 7.5 H, Eosinophils (%) (Auto) 3.5 H, Basophils (%) (Auto) 0.5, Neutrophils # (Auto) 10.4 H, Lymphocytes # (Auto) 1.0 L, Monocytes # (Auto) 1.0 H, Eosinophils # (Auto) 0.4, Basophils # (Auto) 0.1 Vital Signs Date Time Temp Pulse Resp B/P Pulse Ox O2 Delivery O2 Flow Rate FiO2 03/07/16 16:00 96.5 112 22 112/62 97 Nasal Cannula 2.0 03/01/16 21:00 50 I&O- Last 24 Hours up to 6 AM 03/07/16 06:00 Intake Total 1650 ml Output Total 2375 ml Balance -725 ml MONICA BERNAL MD Mar 07, 2016 16:32
[2016-03-07 20:00] VITALS: BP 116/60
[2016-03-08 00:25] VITALS: BP 118/59
[2016-03-08 03:39] VITALS: BP 131/65
[2016-03-08] MEDS: SODIUM CHLORIDE 0.9% INJ 10 ML SYR IV SCH ×3 (05:42→21:03)
[2016-03-08] MEDS: LEVOTHYROXINE 0.05 MG TAB (50 MCG) PO SCH (05:42)
[2016-03-08 06:07] LABS: MEAN CORPUSCULAR HEMOGLOBIN 28.9 pg (27.0-33.0); MEAN CORPUSCULAR HGB CONC 30.8 g/dl (32.0-36.5); MEAN CORPUSCULAR VOLUME 93.8 fl (80.0-96.0); PLATELET COUNT, AUTOMATED 655 k/mm3 (150-450); RED CELL DISTRIBUTION WIDTH 16.5 % (11.5-14.5)
[2016-03-08 06:08] LABS: NEUTROPHILS % 79.9 % (36.0-66.0)
[2016-03-08 06:09] LABS: BASO % 0.4 % (0.0-1.0); EOS # 0.4 K/mm3 (0.0-0.50); EOS % 3.9 % (0.0-3.0); LARGE UNSTAINED CELL # 0.3 K/mm3 (0.0-0.4); LARGE UNSTAINED CELL % 2.6 % (0.0-4.0); LYMPH # 0.7 K/mm3 (1.5-4.5); LYMPH % 6.6 % (24.0-44.0); MONO # 0.7 K/mm3 (0.0-0.8); MONO % 6.7 % (0.0-5.0); NEUTROPHILS # 8.8 K/mm3 (1.8-7.7)
[2016-03-08 06:12] LABS: ALBUMIN 2.1 GM/DL (3.2-5.2); ANION GAP 5 MEQ/L (8-16); BLOOD UREA NITROGEN 41 MG/DL (7-18); CARBON DIOXIDE LEVEL 31 MEQ/L (21-32); CHLORIDE LEVEL 104 MEQ/L (98-107); CREATININE FOR GFR 0.87 MG/DL (0.55-1.02); GLOMERULAR FILTRATION RATE > 60.0 (>32); GLUCOSE, FASTING 107 MG/DL (83-110); PHOSPHORUS LEVEL 2.6 MG/DL (2.5-4.9); POTASSIUM SERUM 4.1 MEQ/L (3.5-5.1); SODIUM LEVEL 140 MEQ/L (136-145)
[2016-03-08 08:00] VITALS: BP 118/64
[2016-03-08] MEDS: MOM 30ML SUSPENSION UDC PO SCH ×2 (08:27→21:03)
[2016-03-08] MEDS: PANTOPRAZOLE 40MG TAB (PROTONIX) PO SCH (08:27)
[2016-03-08] MEDS: POTASSIUM CHLORIDE 10 MEQ SR TABLET PO SCH (08:28)
[2016-03-08] MEDS: DABIGATRAN ETEXILATE 75 MG CAP (PRADAXA) PO SCH ×2 (08:28→21:02)
[2016-03-08] MEDS: DOCUSATE SODIUM 100 MG CAP PO SCH ×2 (08:28→21:03)
[2016-03-08] MEDS: VITAMIN D 1,000 INTERNATIONAL UNITS TABLET PO SCH (08:28)
[2016-03-08] MEDS: TORSEMIDE 20 MG TAB PO SCH (08:28)
[2016-03-08] MEDS: PYRIDOXINE 50 MG TAB PO SCH (08:28)
[2016-03-08] MEDS: MIDODRINE 5 MG TAB PO SCH ×2 (08:28→15:20)
[2016-03-08] MEDS: CALCIUM/VITAMIN D 500 MG TAB PO SCH (08:28)
[2016-03-08] MEDS: CYANOCOBALAMIN 500 MCG TAB PO SCH (08:28)
[2016-03-08] MEDS: MIRALAX *UNIT DOSE* 17GM PACKET PO SCH ×2 (08:29→21:03)
[2016-03-08] MEDS: ATENOLOL 12.5MG PER 1/2 TABLET PO SCH ×2 (08:29→21:02)
[2016-03-08 12:00] VITALS: BP 123/60
[2016-03-08] MEDS: cefTRIAXone SOD 2 GM in D5W MINI-BAG PLUS 50 ML IV SCH (12:25)
--- NOTE | 2016-03-08 15:23 | IPNPDOC ---
Text Note Date of Service The patient was seen on 03/08/16 at 15:21. NOTE Subjective: Patient states she's feeling well. Denies any current complaints. Patient would like to be off of oxygen during the day before going home. Objective: Vitals: (see below) General: No acute distress, laying comfortably in bed. Cachectic HEENT: Moist mucous membranes. Neck: No JVD or lymphadenopathy Cardiac: Irregularly irregular, tachycardic. Pulm: Diminished breath sounds and crackles b/l bases. No wheezing, rhonchi Abd: NT/ND + BS. Ext: No edema or cyanosis Labs (see below) Images: CXR 03/02/16 Impression:Right upper lobe and right middle lobe consolidation consistent with pneumonia unchanged. Cardiomegaly with pacemaker. Assessment/Plan 1. Status post acute hypercapnic and hypoxic respiratory failure secondary to severe sepsis from community-acquired pneumonia. It appears the patient has strep pneumonia bacteremia with repeat cultures negative. Patient is on Rocephin. Vitals are relatively stable. Her tachycardia is improving with the treatment of her sepsis. Status post azithromycin. 1 bld cx with gram + rods, likely contaminated. 2. Elevated troponin- likely secondary to demand ischemia from her severe sepsis. I have discussed this with Dr. Jarvis who recommends outpatient follow- up. He will schedule her for an outpatient stress test once she is stable for discharge. EKG did have some mild ST changes however these were during her episodes of atrial fibrillation with RVR. The patient denies any chest pain/ palpitations. 3. Right-sided heart failure- secondary to pulmonary hypertension, following up with pulmonary outpatient.. Patient does have hepatic congestion with varicose veins as well. Her dose of torsemide daily was held given her state of severe sepsis. Restart home dose today. 4. Atrial Fibrillation with RVR. Uncontrolled in the setting of sepsis. Her atenolol was restarted yesterday at a low dose. Continue pradaxa. I did speak with Dr. Jarvis regarding her rate control with recommendations to use digoxin as needed in the short-term with the ultimate plan to discontinue it altogether prior to discharge. 5. AK- secondary to #1. Baseline 1.1, which is where the patient is at right now. Creatinine is significantly improved since hospitalization. 6. Normocytic anemia- no bleeding noted. Stable. Continue to monitor hemoglobin. 7. Hypothyroidism- continue Synthroid 8. SSS- status post PPM 9. Hyperlipidemia 10. Osteoarthritis- continue Tylenol when necessary 11. GERD- continue PPI DVT prophy: On pradaxa. Plan to discharge in the next 24 hours. Cleared by physical therapy. VS,Erica, I+O VS, Renaye, I+O Laboratory Tests 03/08/16 05:41 Anion Gap 5 L, Red Blood Count 3.95 L, Mean Corpuscular Volume 93.8, Mean Corpuscular Hemoglobin 28.9, Mean Corpuscular Hemoglobin Concent 30.8 L, Red Cell Distribution Width 16.5 H, Neutrophils (%) (Auto) 79.9 H, Lymphocytes (%) ( Auto) 6.6 L, Monocytes (%) (Auto) 6.7 H, Eosinophils (%) (Auto) 3.9 H, Basophils (%) (Auto) 0.4, Neutrophils # (Auto) 8.8 H, Lymphocytes # (Auto) 0.7 L , Monocytes # (Auto) 0.7, Eosinophils # (Auto) 0.4, Basophils # (Auto) 0.0 Vital Signs Date Time Temp Pulse Resp B/P Pulse Ox O2 Delivery O2 Flow Rate FiO2 03/08/16 12:00 97.2 105 18 123/60 97 Room Air 03/08/16 08:00 1.0 03/07/16 20:00 97 I&O- Last 24 Hours up to 6 AM 03/08/16 06:00 Intake Total 1600 ml Output Total 2850 ml Balance -1250 ml MONICA BERNAL MD Mar 08, 2016 15:23
[2016-03-08 17:25] VITALS: BP 122/66
[2016-03-08 20:20] VITALS: BP 138/64
[2016-03-09] MEDS: SODIUM CHLORIDE 0.9% INJ 10 ML SYR IV SCH ×3 (05:31→22:21)
[2016-03-09] MEDS: LEVOTHYROXINE 0.05 MG TAB (50 MCG) PO SCH (05:31)
[2016-03-09 05:40] VITALS: BP 108/61
[2016-03-09 05:58] LABS: MEAN CORPUSCULAR HEMOGLOBIN 28.2 pg (27.0-33.0); MEAN CORPUSCULAR HGB CONC 30.5 g/dl (32.0-36.5); MEAN CORPUSCULAR VOLUME 92.4 fl (80.0-96.0); RED CELL DISTRIBUTION WIDTH 16.2 % (11.5-14.5); WHITE BLOOD COUNT 11.5 K/mm3 (4.0-10.0)
[2016-03-09 06:14] LABS: ANION GAP 6 MEQ/L (8-16); BLOOD UREA NITROGEN 30 MG/DL (7-18); CARBON DIOXIDE LEVEL 31 MEQ/L (21-32); CHLORIDE LEVEL 104 MEQ/L (98-107); CREATININE FOR GFR 0.67 MG/DL (0.55-1.02); GLOMERULAR FILTRATION RATE > 60.0 (>32); GLUCOSE, FASTING 95 MG/DL (83-110); POTASSIUM SERUM 4.1 MEQ/L (3.5-5.1); SODIUM LEVEL 141 MEQ/L (136-145)
[2016-03-09 06:20] LABS: CALCIUM LEVEL 7.6 MG/DL (8.8-10.2)
[2016-03-09] MEDS: MIRALAX *UNIT DOSE* 17GM PACKET PO SCH ×2 (09:00→20:47)
[2016-03-09] MEDS: ATENOLOL 12.5MG PER 1/2 TABLET PO SCH (09:00)
[2016-03-09] MEDS: MOM 30ML SUSPENSION UDC PO SCH ×2 (09:00→20:47)
[2016-03-09] MEDS: DOCUSATE SODIUM 100 MG CAP PO SCH ×2 (09:00→20:47)
[2016-03-09] MEDS: VITAMIN D 1,000 INTERNATIONAL UNITS TABLET PO SCH (10:01)
[2016-03-09] MEDS: PYRIDOXINE 50 MG TAB PO SCH (10:01)
[2016-03-09] MEDS: DABIGATRAN ETEXILATE 75 MG CAP (PRADAXA) PO SCH ×2 (10:01→20:50)
[2016-03-09] MEDS: MIDODRINE 5 MG TAB PO SCH ×2 (10:01→16:54)
[2016-03-09] MEDS: PANTOPRAZOLE 40MG TAB (PROTONIX) PO SCH (10:02)
[2016-03-09] MEDS: POTASSIUM CHLORIDE 10 MEQ SR TABLET PO SCH (10:02)
[2016-03-09] MEDS: CALCIUM/VITAMIN D 500 MG TAB PO SCH (10:02)
[2016-03-09] MEDS: TORSEMIDE 20 MG TAB PO SCH (10:02)
[2016-03-09] MEDS: CYANOCOBALAMIN 500 MCG TAB PO SCH (10:02)
[2016-03-09] MEDS: ATENOLOL 50 MG TAB PO SCH ×2 (10:03→20:51)
--- NOTE | 2016-03-09 11:39 | IPNPDOC ---
Text Note Date of Service The patient was seen on 03/09/16 at 11:35. NOTE Subjective: Patient states she's feeling well. Becomes SOB with ambulation. Objective: Vitals: (see below) General: No acute distress, laying comfortably in bed. Cachectic HEENT: Moist mucous membranes. Neck: No JVD or lymphadenopathy Cardiac: Irregularly irregular, tachycardic. Pulm: Diminished breath sounds and crackles b/l bases. No wheezing, rhonchi Abd: NT/ND + BS. Ext: No edema or cyanosis Labs (see below) Images: CXR 03/02/16 Impression:Right upper lobe and right middle lobe consolidation consistent with pneumonia unchanged. Cardiomegaly with pacemaker. Assessment/Plan 1. Status post acute hypercapnic and hypoxic respiratory failure secondary to severe sepsis from community-acquired pneumonia. It appears the patient has strep pneumonia bacteremia with repeat cultures negative. Patient is on Rocephin. Vitals are relatively stable. Her tachycardia is improving with the treatment of her sepsis. Status post azithromycin. 1 bld cx with gram + rods, likely contaminated. 2. Elevated troponin- likely secondary to demand ischemia from her severe sepsis. I have discussed this with Dr. Jarvis who recommends outpatient follow- up. He will schedule her for an outpatient stress test once she is stable for discharge. EKG did have some mild ST changes however these were during her episodes of atrial fibrillation with RVR. The patient denies any chest pain/ palpitations. 3. Right-sided heart failure- secondary to pulmonary hypertension, following up with pulmonary outpatient.. Patient does have hepatic congestion with varicose veins as well. Her dose of torsemide daily was held given her state of severe sepsis. On Torsemide now that BP is improved. 4. Atrial Fibrillation with RVR. Uncontrolled in the setting of sepsis. Atenolol increased to 50 BID. Continue pradaxa. I did speak with Dr. Jarvis regarding her rate control with recommendations to use digoxin as needed in the short-term with the ultimate plan to discontinue it altogether prior to discharge. 5. AK- secondary to #1. Baseline 1.1, which is where the patient is at right now. Creatinine is significantly improved since hospitalization. 6. Normocytic anemia- no bleeding noted. Stable. Continue to monitor hemoglobin. 7. Hypothyroidism- continue Synthroid 8. SSS- status post PPM 9. Hyperlipidemia 10. Osteoarthritis- continue Tylenol when necessary 11. GERD- continue PPI DVT prophy: On pradaxa. Plan to discharge in the next 24-48 hours once hypoxia improves. O2 sat dropped to 69% with ambulation, requiring 3-4L O2 NC. Will give an extra dose of torsemide today. Increase Atenolol for better HR control. Cleared by physical therapy. VS,Fishbone, I+O VS, Fishbone, I+O Laboratory Tests 03/09/16 05:31 Calcium Level 7.6 #L, Red Blood Count 4.01, Mean Corpuscular Volume 92.4, Mean Corpuscular Hemoglobin 28.2, Mean Corpuscular Hemoglobin Concent 30.5 L, Red Cell Distribution Width 16.2 H Vital Signs Date Time Temp Pulse Resp B/P Pulse Ox O2 Delivery O2 Flow Rate FiO2 03/09/16 10:31 96 Nasal Cannula 3.0 03/09/16 10:03 96 117/57 03/09/16 05:40 97.2 16 03/07/16 20:00 97 I&O- Last 24 Hours up to 6 AM 03/09/16 06:00 Intake Total 1490 ml Output Total 1850 ml Balance -360 ml MONICA BERNAL MD Mar 09, 2016 11:39
[2016-03-09] MEDS ORDERED: TORSEMIDE 20 MG TAB PO ONE (12:00)
[2016-03-09] MEDS: cefTRIAXone SOD 2 GM in D5W MINI-BAG PLUS 50 ML IV SCH (13:02)
[2016-03-09 14:00] VITALS: BP 135/60
[2016-03-09 20:45] VITALS: BP 118/56
[2016-03-10] MEDS: LEVOTHYROXINE 0.05 MG TAB (50 MCG) PO SCH (05:31)
[2016-03-10] MEDS: SODIUM CHLORIDE 0.9% INJ 10 ML SYR IV SCH ×2 (05:31→12:39)
[2016-03-10 05:40] VITALS: BP 100/58
[2016-03-10 05:45] LABS: MEAN CORPUSCULAR HEMOGLOBIN 28.3 pg (27.0-33.0); MEAN CORPUSCULAR HGB CONC 30.4 g/dl (32.0-36.5); MEAN CORPUSCULAR VOLUME 92.8 fl (80.0-96.0); WHITE BLOOD COUNT 12.1 K/mm3 (4.0-10.0)
[2016-03-10 06:01] LABS: ANION GAP 7 MEQ/L (8-16); BLOOD UREA NITROGEN 30 MG/DL (7-18); CALCIUM LEVEL 7.5 MG/DL (8.8-10.2); CARBON DIOXIDE LEVEL 30 MEQ/L (21-32); CHLORIDE LEVEL 106 MEQ/L (98-107); CREATININE FOR GFR 0.78 MG/DL (0.55-1.02); GLOMERULAR FILTRATION RATE > 60.0 (>32); GLUCOSE, FASTING 110 MG/DL (83-110); POTASSIUM SERUM 3.7 MEQ/L (3.5-5.1); SODIUM LEVEL 143 MEQ/L (136-145)
[2016-03-10] MEDS: VITAMIN D 1,000 INTERNATIONAL UNITS TABLET PO SCH (10:03)
[2016-03-10] MEDS: DOCUSATE SODIUM 100 MG CAP PO SCH (10:03)
[2016-03-10] MEDS: DABIGATRAN ETEXILATE 75 MG CAP (PRADAXA) PO SCH (10:03)
[2016-03-10 10:04] VITALS: BP 104/59
[2016-03-10] MEDS: MOM 30ML SUSPENSION UDC PO SCH (10:04)
[2016-03-10] MEDS: ATENOLOL 50 MG TAB PO SCH (10:04)
[2016-03-10] MEDS: CALCIUM/VITAMIN D 500 MG TAB PO SCH (10:04)
[2016-03-10] MEDS: PYRIDOXINE 50 MG TAB PO SCH (10:04)
[2016-03-10] MEDS: MIRALAX *UNIT DOSE* 17GM PACKET PO SCH (10:04)
[2016-03-10] MEDS: POTASSIUM CHLORIDE 10 MEQ SR TABLET PO SCH (10:04)
[2016-03-10] MEDS: CYANOCOBALAMIN 500 MCG TAB PO SCH (10:05)
[2016-03-10] MEDS: PANTOPRAZOLE 40MG TAB (PROTONIX) PO SCH (10:05)
[2016-03-10] MEDS: TORSEMIDE 20 MG TAB PO SCH (10:06)
[2016-03-10] MEDS: MIDODRINE 5 MG TAB PO SCH (10:06)
[2016-03-10] MEDS: cefTRIAXone SOD 2 GM in D5W MINI-BAG PLUS 50 ML IV SCH (12:39)
[2016-03-10] MEDS ORDERED: LEVA500T PO (12:51)
[2016-03-10 14:00] VITALS: BP 125/58
--- NOTE | 2016-03-10 15:12 | DS.PDOC ---
Discharge Summary General Date of Admission Mar 01, 2016 at 12:37 Date of Discharge Attending Physician: MONICA BERNAL MD Specialist/Consultants Involve: BRANDIN CARRANZA Discharge Summary PROCEDURES PERFORMED DURING STAY: TLC COMPLICATIONS/CHIEF COMPLAINT: Cough ADMISSION/DISCHARGE DIAGNOSES: 1. Severe Sepsis 2. Strep Pneumonia bacteremia 3. NSTEMI 4. Right sided heart failure 5. Atrial Fibrillation with RVR 6. ANGIE 7. Normocytic anemia 8. Hypothyroidism 9. SSS status post PPM 10. Hyperlipidemia 11. Osteoarthritis HISTORY OF PRESENT ILLNESS/HOSPITAL COURSE: This is a 85-year-old female past with history of right-sided heart failure, A. fib who presents complaining of shortness of breath. Patient states that she's been having a productive cough with sputum production , fevers, and generalized weakness on the Friday prior to admission. The patient uses 2 L nasal cannula O2 at night. She has chronic palpitations due to her atrial fibrillation however denies any chest pain. On presentation the patient was found to be in severe sepsis from community acquired pneumonia. Her blood cultures and her sputum culture subsequently returned positive for strep pneumonia. She was continued on antibiotics and responded very well. In addition patient did have an elevation of her troponin with a peak of greater than 2. With the treatment of her sepsis her troponin has been trending down. I did speak with Dr. Jarvis who recommended outpatient follow-up for possible stress test. The patient was initially requiring oxygen on ambulation however with additional diuresis, she is currently ambulating on room air and hemodynamically stable for discharge. DISCHARGE MEDICATIONS: Please see below. ALLERGIES: Please see below. PHYSICAL EXAMINATION ON DISCHARGE: Vitals: (see below) General: No acute distress, laying comfortably in bed. Cachectic HEENT: Moist mucous membranes. Neck: No JVD or lymphadenopathy Cardiac: Irregularly irregular, tachycardic. Pulm: Diminished breath sounds and crackles b/l bases. No wheezing, rhonchi Abd: NT/ND + BS. Ext: No edema or cyanosis LABORATORY DATA: Please see below. Images: CXR 03/02/16 Impression:Right upper lobe and right middle lobe consolidation consistent with pneumonia unchanged. Cardiomegaly with pacemaker. VTE Prophylaxis ordered?: Yes DISCHARGE CONDITION: Stable DISPOSITION: Discharged to home ACTIVITY: As tolerated DIET: Low-sodium DISCHARGE PLAN AND INSTRUCTIONS: 1. Follow-up with PCP, Dr. Jarvis in 1-2 weeks. TIME SPENT ON DISCHARGE: Greater than 30 minutes. Vital Signs/I&Os Vital Signs Date Time Temp Pulse Resp B/P Pulse Ox O2 Delivery O2 Flow Rate FiO2 03/10/16 14:00 97.3 102 18 125/58 98 Room Air 03/10/16 05:40 2.0 03/07/16 20:00 97 I&O- Last 24 Hours up to 6 AM 03/10/16 06:00 Intake Total 2200 ml Output Total 3800 ml Balance -1600 ml Laboratory Data Labs 24H Laboratory Tests 2 03/10/16 05:28: Anion Gap 7L, C-Reactive Protein, Quantitative 6.66H, Blood Urea Nitrogen 30H, Creatinine 0.78, Sodium Level 143, Potassium Level 3.7, Chloride Level 106, Carbon Dioxide Level 30, Calcium Level 7.5L, Glomerular Filtration Rate > 60.0 CBC/BMP Laboratory Tests 03/10/16 05:28 Calcium Level 7.5 L, Red Blood Count 4.14, Mean Corpuscular Volume 92.8, Mean Corpuscular Hemoglobin 28.3, Mean Corpuscular Hemoglobin Concent 30.4 L, Red Cell Distribution Width 16.0 H Microbiology Microbiology 03/03/16 Blood Culture - Final, Complete NO GROWTH AFTER 5 DAYS 03/03/16 Blood Culture - Final, Complete NO GROWTH AFTER 5 DAYS 03/01/16 Blood Culture - Final, Complete Streptococcus Pneumoniae 03/01/16 Blood Culture - Preliminary, Resulted 03/01/16 MRSA Screen - Final, Complete 03/01/16 Influenza Virus Type A Antigen - Final, Complete 03/01/16 Influenza Virus Type B Antigen - Final, Complete 03/01/16 Gram Stain - Final, Complete 03/01/16 Sputum Culture - Final, Complete Streptococcus Pneumoniae 03/01/16 Urine Culture - Final, Complete Medications Scheduled Atenolol (Atenolol) 50 Mg Tab 50 MG PO BID Calcium/Vitamin D (Calcium Carbonate/D3 600-400 mg-Unit) 1 Tab Tab 1 TAB PO DAILY Cholecalciferol (Vitamin D) 1,000 Unit Tab 1,000 UNIT PO DAILY Cyanocobalamin (Vitamin B-12) 500 Mcg Tab 500 MCG PO DAILY Dabigatran Etexilate (Pradaxa) 75 Mg Cap 75 MG PO BID Levofloxacin Hemihydrate (Levaquin) 500 Mg Tab 500 MG PO DAILY Levothyroxine Sodium (Levoxyl) 50 Mcg Tab 50 MCG PO DAILY Magnesium (Magnesium) 250 Mg Tab 250 MG PO DAILY Midodrine HCl (Midodrine HCl) 5 Mg Tab 5 MG PO BID Pyridoxine HCl (Vitamin B 6) 50 Mg Tab 50 MG PO DAILY Torsemide (Torsemide) 20 Mg Tab 20 MG PO DAILY Allergies Coded Allergies: Barbiturates (Verified Allergy, Unknown, 05/28/12) Niacin (Verified Allergy, Unknown, 05/28/12) Codeine (Verified Adverse Reaction, Intermediate, FEVER, FLU-LIKE SYMPTOMS , 02/09/15) Propoxyphene (Verified Adverse Reaction, Intermediate, FEVER, FLU LIKE SYMPTOMS, 02/09/15) MONICA BERNAL MD Mar 10, 2016 15:12
== END 2016-03-10 16:00 | disposition home or self-care (01) | DRG 871 ==
LOC: M ED 10:53 → M ED INP 12:37 → M ICU 17:42 → M PCU 03-02 17:00 → M MSPAV 03-08 17:19
PROVIDERS: ADMIT Hospitalist; ATTEND Internal Medicine
PROC: 05HM33Z Insertion of Infusion Device into Right Internal Jugular Vein, Percutaneous Approach (ICD-10-PCS; principal; 2016-03-01)
DX: A40.3 Sepsis due to Streptococcus pneumoniae (principal); J18.9 Pneumonia, unspecified organism; J96.21 Acute and chronic respiratory failure with hypoxia; J96.02 Acute respiratory failure with hypercapnia; R65.20 Severe sepsis without septic shock; I24.8 Other forms of acute ischemic heart disease; I50.32 Chronic diastolic (congestive) heart failure; E87.4 Mixed disorder of acid-base balance; E87.1 Hypo-osmolality and hyponatremia; I13.0 Hypertensive heart and chronic kidney disease with heart failure and stage 1 through stage 4 chronic kidney disease, or unspecified chronic kidney disease; N17.9 Acute kidney failure, unspecified; R64 Cachexia; I48.2 Chronic atrial fibrillation; Z66 Do not resuscitate; I27.2 Other secondary pulmonary hypertension; I49.5 Sick sinus syndrome; Z95.0 Presence of cardiac pacemaker; D64.9 Anemia, unspecified; N18.3 Chronic kidney disease, stage 3 (moderate); I83.93 Asymptomatic varicose veins of bilateral lower extremities; G62.9 Polyneuropathy, unspecified; K59.00 Constipation, unspecified; E55.9 Vitamin D deficiency, unspecified; K76.1 Chronic passive congestion of liver; E78.00 Pure hypercholesterolemia, unspecified; K21.9 Gastro-esophageal reflux disease without esophagitis; M19.90 Unspecified osteoarthritis, unspecified site; Z79.01 Long term (current) use of anticoagulants; Z79.899 Other long term (current) drug therapy; Z87.891 Personal history of nicotine dependence; Z99.81 Dependence on supplemental oxygen

== ENCOUNTER → 2016-08-14 | Outpatient (REF) | payer MEDICARE, OTHER ==
[~2016-08-14] MED LIST changes: +LEVA500T PO; +LEVO50TA45 PO; +MIDO5TA PO; +TORS20TA2 PO
[2016-08-14 19:51] LABS: PERCENT SATURATION 8.1 % (13.2-37.4); TOTAL IRON BINDING CAPACITY 421 UG/DL (250-450)
[2016-08-14 19:55] LABS: FOLATE > 24.0 NG/ML (>5.4); VITAMIN B12 LEVEL 1915 PG/ML (247-911)
== END ==
LOC: M LAB REF 16:53
PROVIDERS: ATTEND Internal Medicine
DX: D50.9 Iron deficiency anemia, unspecified (principal)

== ENCOUNTER → 2016-09-12 | Outpatient (REF) | payer MEDICARE, OTHER ==
[~2016-09-12] MED LIST changes: +AMIL5TA PO; +BACIOIN7 TOP; +CALC1TAB5 PO; -CALC600T71 PO; +FOLI800C PO; +LEVA1TAB2 PO; -LEVA500T PO; -MAGN250T2 PO; +MAGN250T7 PO
[2016-09-12 18:36] LABS: RETICULOCYTE % 3.2 % (0.5-1.5)
[2016-09-12 19:11] LABS: PERCENT SATURATION 9.8 % (13.2-37.4)
== END ==
LOC: M LAB REF 17:11
PROVIDERS: ATTEND Internal Medicine
DX: D64.9 Anemia, unspecified (principal)

== ENCOUNTER 2016-10-01 08:33 | Emergency (ER) | payer MEDICARE, OTHER ==
[~2016-10-01] VITALS: Ht 165.1 cm; Wt 54.5 kg
[~2016-10-01 08:33] MED LIST changes: -AMIL5TA PO; -BACIOIN7 TOP; -FOLI800C PO
[2016-10-01] MEDS ORDERED: TORS20TA2 PO (08:47)
[2016-10-01] MEDS ORDERED: FOLI800C PO (08:47)
[2016-10-01] MEDS ORDERED: AMIL5TA PO (08:47)
[2016-10-01] MEDS ORDERED: PHENYLEPHRINE 1% NASAL DROP 30 ML ONE (09:00)
[2016-10-01] MEDS ORDERED: PHENYLEPHRINE 1% NASAL DROP 30 ML As Ordered ONE (09:14)
[2016-10-01] MEDS ORDERED: PHENYLEPHRINE 0.5% NASAL SPRAY 15 ML ONE (09:15)
[2016-10-01 09:43] LABS: INR 2.71; MEAN CORPUSCULAR HEMOGLOBIN 27.3 pg (27.0-33.0); MEAN CORPUSCULAR HGB CONC 30.1 g/dl (32.0-36.5); MEAN CORPUSCULAR VOLUME 90.8 fl (80.0-96.0); RED CELL DISTRIBUTION WIDTH 18.9 % (11.5-14.5); WHITE BLOOD COUNT 12.1 K/mm3 (4.0-10.0)
[2016-10-01 09:50] LABS: CALCIUM LEVEL 9.3 MG/DL (8.8-10.2); CREATININE FOR GFR 1.8 MG/DL (0.55-1.02); GLOMERULAR FILTRATION RATE 28.3 (>32); POTASSIUM SERUM 4.3 MEQ/L (3.5-5.1)
[2016-10-01] MEDS ORDERED: BACIOIN7 TOP (10:11)
[2016-10-01 10:43] VITALS: BP 105/55
[2016-12-17] MEDS ORDERED: AMIL5TA PO (13:01)
[2016-12-17] MEDS ORDERED: PRAD75CA3 PO (13:02)
[2016-12-17] MEDS ORDERED: MIDO5TA PO (16:15)
[2016-12-17] MEDS ORDERED: FOLI400T PO (16:15)
== END 2016-10-01 10:43 | disposition home or self-care (01) ==
LOC: M ED 08:33
DX: R04.0 Epistaxis (principal); I48.91 Unspecified atrial fibrillation; Z79.899 Other long term (current) drug therapy; Z79.01 Long term (current) use of anticoagulants; Z88.5 Allergy status to narcotic agent; Z88.8 Allergy status to other drugs, medicaments and biological substances

== ENCOUNTER → 2016-10-10 | Outpatient (REF) | payer MEDICARE, OTHER ==
[~2016-10-10] MED LIST changes: +AMIL5TA PO; +BACIOIN7 TOP; +FOLI800C PO
== END ==
LOC: M LAB REF 16:36
PROVIDERS: ATTEND Surgery
DX: D04.62 Carcinoma in situ of skin of left upper limb, including shoulder (principal); L57.8 Other skin changes due to chronic exposure to nonionizing radiation

== ENCOUNTER 2016-10-12 10:04 | Emergency (ER) | payer MEDICARE, OTHER ==
[~2016-10-12] VITALS: Ht 165.1 cm; Wt 57.7 kg
[2016-10-12] MEDS ORDERED: GLUC1CAP9 PO (10:16)
[2016-10-12 11:17] LABS: INR 2.13
[2016-10-12 11:22] LABS: BASO # 0.1 K/mm3 (0.0-0.2); BASO % 0.6 % (0.0-1.0); EOS # 0.8 K/mm3 (0.0-0.50); LARGE UNSTAINED CELL # 0.1 K/mm3 (0.0-0.4); LARGE UNSTAINED CELL % 1.1 % (0.0-4.0); LYMPH # 1.4 K/mm3 (1.5-4.5); LYMPH % 12.3 % (24.0-44.0); MEAN CORPUSCULAR HEMOGLOBIN 26.8 pg (27.0-33.0); MEAN CORPUSCULAR HGB CONC 30.2 g/dl (32.0-36.5); MEAN CORPUSCULAR VOLUME 88.6 fl (80.0-96.0); MONO # 0.5 K/mm3 (0.0-0.8); MONO % 4.6 % (0.0-5.0); NEUTROPHILS # 7.6 K/mm3 (1.8-7.7); NEUTROPHILS % 73.4 % (36.0-66.0); PLATELET COUNT, AUTOMATED 771 k/mm3 (150-450); RED CELL DISTRIBUTION WIDTH 18.1 % (11.5-14.5); WHITE BLOOD COUNT 10.3 K/mm3 (4.0-10.0)
[2016-10-12 12:33] VITALS: BP 99/62
[2016-12-17] MEDS ORDERED: AMIL5TA PO (13:01)
[2016-12-17] MEDS ORDERED: PRAD75CA3 PO (13:02)
[2016-12-17] MEDS ORDERED: MIDO5TA PO (16:15)
[2016-12-17] MEDS ORDERED: FOLI400T PO (16:15)
== END 2016-10-12 12:36 | disposition home or self-care (01) ==
LOC: M ED 10:41
DX: L76.22 Postprocedural hemorrhage of skin and subcutaneous tissue following other procedure (principal); I10 Essential (primary) hypertension; J45.909 Unspecified asthma, uncomplicated; E78.00 Pure hypercholesterolemia, unspecified; Z79.01 Long term (current) use of anticoagulants; Z79.899 Other long term (current) drug therapy; Z88.5 Allergy status to narcotic agent; Z88.8 Allergy status to other drugs, medicaments and biological substances; Z91.040 Latex allergy status; Z95.0 Presence of cardiac pacemaker; I25.2 Old myocardial infarction